=== PATIENT | male | born 1940 | race Caucasian/White ===

== ENCOUNTER 2016-11-20 16:18 | Outpatient (CLI) | payer MEDICARE ==
[2016-11-20 16:42] LABS: Prothrombin Time 22.8 SEC (12.0-14.7)
[2016-11-20 18:14] LABS: Anion Gap 18 mmol/L (10-20); BUN (Urea Nitrogen) 49 mg/dL (8.4-25.7); Calc. Creatinine Clearance 0 mL/min (70-130); Calcium 9.6 mg/dL (7.8-10.44); Carbon Dioxide 28 mmol/L (23-31); Chloride 99 mmol/L (98-107); Estimated GFR-MDRD 58
[2016-11-20 19:31] LABS: #Basophils 0.1 thou/uL (0.0-0.2); #Eosinphils 0.2 thou/uL (0.0-0.7); #Lymphocytes 1.2 thou/uL (1.20-3.40); #Monocytes 0.7 thou/uL (0.11-0.59); #Neutrophils 5.6 thou/uL (1.40-6.50); %Basophils 1.1 % (0.0-1.0); %Eosinophils 2.3 % (0.0-10.0); %Monocytes 9.4 % (0.0-10.0); Hematocrit 36.5 % (42.0-52.0); Mean Platelet Volume 7.7 fL (7.4-10.4); Red Blood Cell (RBC) Count 4.17 mill/uL (4.70-6.10); White Blood Cell (WBC) Count 7.7 thou/uL (4.8-10.8)
== END 2016-11-20 16:19 | disposition home or self-care (01) ==
LOC: BURLAB 16:18
PROVIDERS: ATTEND Family Medicine
DX: I48.91 Unspecified atrial fibrillation (principal); R60.9 Edema, unspecified; D50.9 Iron deficiency anemia, unspecified
CPT/HCPCS: 36415; 80048; 85025; 85610

== ENCOUNTER 2016-12-15 11:27 | Inpatient (IN) | payer MEDICARE ==
[2016-12-15] MEDS ORDERED: Temazepam 15 MG CAP PO PRN (22:50)
[2016-12-16 06:28] LABS: INR-International Normal Ratio 3.2; Prothrombin Time 32.4 SEC (12.0-14.7)
[2016-12-16 06:35] LABS: Anion Gap 15 mmol/L (10-20); BUN (Urea Nitrogen) 47 mg/dL (8.4-25.7); Calc. Creatinine Clearance 99 mL/min (70-130); Calcium 8.6 mg/dL (7.8-10.44); Carbon Dioxide 30 mmol/L (23-31); Chloride 93 mmol/L (98-107); Estimated GFR-MDRD 61; Glucose 88 mg/dL (83-110); Potassium 3.8 mmol/L (3.5-5.1); Sodium 134 mmol/L (136-145)
[2016-12-16] MEDS ORDERED: Oxymetazoline HCl 0.05% ( 15 ML ) NASAL PRN (08:46)
[2016-12-16] MEDS ORDERED: Polyethylene Glycol 3350 17 GM Packet PO PRN (08:46)
[2016-12-16] MEDS ORDERED: TRADJENTA 5MG PO SCH ×2 (09:00→09:30)
[2016-12-16] MEDS ORDERED: HumaLOG 300 UNITS/3 ML VIAL SC PRN ×2 (09:02)
[2016-12-16] MEDS ORDERED: Dextrose 5% in Water 1,000 ML IV PRN (09:02)
[2016-12-16] MEDS ORDERED: Dextrose 50% Abboject 50 ML SYRINGE SLOW IVP PRN (09:02)
[2016-12-16] MEDS ORDERED: Lorazepam 0.5 MG TAB PO SCH ×4 (09:07→11:00)
[2016-12-16] MEDS ORDERED: TEMAZEPAM 7.5MG PO SCH (09:15)
[2016-12-16] MEDS ORDERED: LIDOCAINE TOP PRN (09:30)
[2016-12-16] MEDS ORDERED: NICOTINE TOP SCH (09:30)
[2016-12-16] MEDS ORDERED: Levothyroxine Sodium 25 MCG TAB PO SCH (10:00)
[2016-12-16] MEDS ORDERED: Levothyroxine Sodium 100 MCG TAB PO SCH (10:00)
[2016-12-16] MEDS ORDERED: Lisinopril 5 MG TAB PO SCH (10:00)
[2016-12-16] MEDS ORDERED: busPIRone HCl 5 MG TAB PO SCH (10:00)
[2016-12-16] MEDS ORDERED: Potassium Chloride 10 MEQ TAB PO SCH (10:15)
[2016-12-16] MEDS: Furosemide 20 MG TAB PO SCH ×2 (10:28→14:25)
[2016-12-16] MEDS: Docusate 100 MG CAP PO SCH ×2 (10:28→21:21)
[2016-12-16] MEDS: Levothyroxine Sodium 25 MCG TAB PO SCH (10:29)
[2016-12-16] MEDS: Mupirocin 2% Ointment 22 GM Tube TOP SCH ×4 (10:30→21:34)
[2016-12-16] MEDS: Levothyroxine Sodium 100 MCG TAB PO SCH (10:33)
[2016-12-16] MEDS: Potassium Chloride 10 MEQ TAB PO SCH (10:34)
[2016-12-16] MEDS: busPIRone HCl 5 MG TAB PO SCH ×2 (10:35→21:21)
[2016-12-16] MEDS: Lisinopril 5 MG TAB PO SCH (10:36)
[2016-12-16] MEDS: (Vortioxetine Hydrobromide [Trintellix] 10 MG) PO SCH (10:39)
[2016-12-16] MEDS: Nicotine 7 MG PATCH TOP SCH (11:01)
[2016-12-16] MEDS: Warfarin Sodium 2 MG TAB PO SCH (17:36)
[2016-12-16] MEDS ORDERED: Temazepam 15 MG CAP PO PRN (21:11)
[2016-12-16] MEDS: Potassium Chloride 20 MEQ TAB PO SCH (21:22)
[2016-12-16] MEDS: Atorvastatin Calcium 40 MG TAB PO SCH (21:22)
[2016-12-17] MEDS: Levothyroxine Sodium 100 MCG TAB PO SCH (05:34)
[2016-12-17] MEDS: Levothyroxine Sodium 25 MCG TAB PO SCH (05:35)
[2016-12-17 06:11] LABS: INR-International Normal Ratio 2.2; Prothrombin Time 24.5 SEC (12.0-14.7)
[2016-12-17 06:58] LABS: Anion Gap 15 mmol/L (10-20); BUN (Urea Nitrogen) 47 mg/dL (8.4-25.7); Calc. Creatinine Clearance 93 mL/min (70-130); Calcium 8.6 mg/dL (7.8-10.44); Carbon Dioxide 28 mmol/L (23-31); Chloride 96 mmol/L (98-107); Estimated GFR-MDRD 59; Glucose 85 mg/dL (83-110); Potassium 3.9 mmol/L (3.5-5.1); Sodium 135 mmol/L (136-145)
[2016-12-17] MEDS: traMADol HCl 50 MG TAB PO PRN ×3 (09:19→21:14)
[2016-12-17] MEDS: Lisinopril 5 MG TAB PO SCH (09:20)
[2016-12-17] MEDS: Potassium Chloride 10 MEQ TAB PO SCH (09:21)
[2016-12-17] MEDS: Docusate 100 MG CAP PO SCH ×2 (09:21→21:08)
[2016-12-17] MEDS: busPIRone HCl 5 MG TAB PO SCH ×2 (09:21→21:06)
[2016-12-17] MEDS: Furosemide 20 MG TAB PO SCH ×2 (09:22→13:27)
[2016-12-17] MEDS: (Vortioxetine Hydrobromide [Trintellix] 10 MG) PO SCH (09:26)
[2016-12-17] MEDS: Mupirocin 2% Ointment 22 GM Tube TOP SCH ×4 (09:27→21:09)
[2016-12-17] MEDS: Nicotine 7 MG PATCH TOP SCH ×2 (11:09→15:43)
[2016-12-17] MEDS: Lorazepam 0.5 MG TAB PO PRN ×2 (12:47→23:54)
[2016-12-17] MEDS: Warfarin Sodium 2 MG TAB PO SCH (16:33)
[2016-12-17] MEDS: Potassium Chloride 20 MEQ TAB PO SCH (21:08)
[2016-12-17] MEDS: Atorvastatin Calcium 40 MG TAB PO SCH (21:08)
[2016-12-17] MEDS: Temazepam 15 MG CAP PO PRN (23:54)
[2016-12-18] MEDS: Levothyroxine Sodium 100 MCG TAB PO SCH (05:44)
[2016-12-18] MEDS: Levothyroxine Sodium 25 MCG TAB PO SCH (05:45)
[2016-12-18] MEDS: traMADol HCl 50 MG TAB PO PRN ×3 (05:48→20:17)
[2016-12-18 06:27] LABS: Prothrombin Time 22.9 SEC (12.0-14.7)
[2016-12-18 06:53] LABS: Anion Gap 15 mmol/L (10-20); BUN (Urea Nitrogen) 49 mg/dL (8.4-25.7); Calc. Creatinine Clearance 96 mL/min (70-130); Calcium 8.7 mg/dL (7.8-10.44); Carbon Dioxide 28 mmol/L (23-31); Chloride 96 mmol/L (98-107); Estimated GFR-MDRD 59; Glucose 83 mg/dL (83-110); Potassium 4.1 mmol/L (3.5-5.1); Sodium 135 mmol/L (136-145)
[2016-12-18] MEDS ORDERED: Polyethylene Glycol 3350 17 GM Packet PO SCH (08:00)
[2016-12-18] MEDS: busPIRone HCl 5 MG TAB PO SCH ×2 (10:32→20:10)
[2016-12-18] MEDS: Lorazepam 0.5 MG TAB PO PRN ×2 (10:32→20:11)
[2016-12-18] MEDS: Polyethylene Glycol 3350 17 GM Packet PO SCH (10:32)
[2016-12-18] MEDS: Docusate 100 MG CAP PO SCH ×2 (10:32→20:11)
[2016-12-18] MEDS: Lisinopril 5 MG TAB PO SCH (10:33)
[2016-12-18] MEDS: Furosemide 20 MG TAB PO SCH ×2 (10:33→13:53)
[2016-12-18] MEDS: Nicotine 7 MG PATCH TOP SCH (10:34)
[2016-12-18] MEDS: (Vortioxetine Hydrobromide [Trintellix] 10 MG) PO SCH (10:34)
[2016-12-18] MEDS: Potassium Chloride 10 MEQ TAB PO SCH (10:35)
[2016-12-18] MEDS: Mupirocin 2% Ointment 22 GM Tube TOP SCH ×3 (11:03→21:14)
[2016-12-18] MEDS: Warfarin Sodium 2 MG TAB PO SCH (16:52)
[2016-12-18] MEDS: Atorvastatin Calcium 40 MG TAB PO SCH (20:11)
[2016-12-18] MEDS: Potassium Chloride 20 MEQ TAB PO SCH (20:11)
[2016-12-18] MEDS: Temazepam 15 MG CAP PO PRN (23:09)
[2016-12-19] MEDS: Levothyroxine Sodium 100 MCG TAB PO SCH (05:52)
[2016-12-19] MEDS: Levothyroxine Sodium 25 MCG TAB PO SCH (05:53)
[2016-12-19] MEDS: traMADol HCl 50 MG TAB PO PRN ×3 (06:12→23:26)
[2016-12-19 06:39] LABS: INR-International Normal Ratio 1.9; Prothrombin Time 21.8 SEC (12.0-14.7)
[2016-12-19 06:44] LABS: Anion Gap 15 mmol/L (10-20); BUN (Urea Nitrogen) 49 mg/dL (8.4-25.7); Calc. Creatinine Clearance 90 mL/min (70-130); Calcium 8.9 mg/dL (7.8-10.44); Carbon Dioxide 29 mmol/L (23-31); Chloride 94 mmol/L (98-107); Estimated GFR-MDRD 54; Glucose 94 mg/dL (83-110); Potassium 4.6 mmol/L (3.5-5.1); Sodium 133 mmol/L (136-145)
[2016-12-19] MEDS: busPIRone HCl 5 MG TAB PO SCH ×2 (09:12→20:36)
[2016-12-19] MEDS: Potassium Chloride 10 MEQ TAB PO SCH (09:13)
[2016-12-19] MEDS: Furosemide 20 MG TAB PO SCH ×2 (09:13→13:46)
[2016-12-19] MEDS: Lisinopril 5 MG TAB PO SCH (09:14)
[2016-12-19] MEDS: Docusate 100 MG CAP PO SCH ×2 (09:15→20:36)
[2016-12-19] MEDS: Polyethylene Glycol 3350 17 GM Packet PO SCH (09:16)
[2016-12-19] MEDS: (Vortioxetine Hydrobromide [Trintellix] 10 MG) PO SCH (09:25)
[2016-12-19] MEDS: Mupirocin 2% Ointment 22 GM Tube TOP SCH ×3 (09:26→20:38)
[2016-12-19] MEDS: Nicotine 7 MG PATCH TOP SCH (10:52)
[2016-12-19] MEDS ORDERED: Ondansetron ODT 4 MG TAB SL PRN (11:25)
[2016-12-19] MEDS: Warfarin Sodium 2 MG TAB PO SCH (17:22)
[2016-12-19] MEDS: Potassium Chloride 20 MEQ TAB PO SCH (20:35)
[2016-12-19] MEDS: Atorvastatin Calcium 40 MG TAB PO SCH (20:36)
[2016-12-19] MEDS: Lorazepam 0.5 MG TAB PO PRN (20:36)
[2016-12-19] MEDS: Temazepam 15 MG CAP PO PRN (23:22)
[2016-12-20 05:35] LABS: Anion Gap 15 mmol/L (10-20); BUN (Urea Nitrogen) 48 mg/dL (8.4-25.7); Calc. Creatinine Clearance 85 mL/min (70-130); Calcium 8.9 mg/dL (7.8-10.44); Carbon Dioxide 27 mmol/L (23-31); Chloride 96 mmol/L (98-107); Estimated GFR-MDRD 54; Glucose 87 mg/dL (83-110); Potassium 4.9 mmol/L (3.5-5.1); Sodium 133 mmol/L (136-145)
[2016-12-20 05:45] LABS: INR-International Normal Ratio 2.1; Prothrombin Time 23.9 SEC (12.0-14.7)
[2016-12-20] MEDS: Levothyroxine Sodium 25 MCG TAB PO SCH (05:54)
[2016-12-20] MEDS: Levothyroxine Sodium 100 MCG TAB PO SCH (05:54)
[2016-12-20] MEDS: Docusate 100 MG CAP PO SCH (08:47)
[2016-12-20] MEDS: Furosemide 20 MG TAB PO SCH ×2 (08:47→14:01)
[2016-12-20] MEDS: busPIRone HCl 5 MG TAB PO SCH ×2 (08:48→20:43)
[2016-12-20] MEDS: Potassium Chloride 10 MEQ TAB PO SCH (08:48)
[2016-12-20] MEDS: Lisinopril 5 MG TAB PO SCH (08:49)
[2016-12-20] MEDS: Polyethylene Glycol 3350 17 GM Packet PO SCH (08:50)
[2016-12-20] MEDS: (Vortioxetine Hydrobromide [Trintellix] 10 MG) PO SCH (08:54)
[2016-12-20] MEDS: Lorazepam 0.5 MG TAB PO PRN ×2 (09:06→20:48)
[2016-12-20] MEDS: Mupirocin 2% Ointment 22 GM Tube TOP SCH ×3 (09:10→20:45)
[2016-12-20] MEDS: Nicotine 7 MG PATCH TOP SCH (10:56)
[2016-12-20] MEDS ORDERED: [UNRECOGNIZED DRUG - OTHER] PO PRN ×2 (16:38→16:39)
[2016-12-20] MEDS ORDERED: DOCUSATE PO PRN ×2 (16:38→16:39)
[2016-12-20] MEDS: Warfarin Sodium 2 MG TAB PO SCH (16:58)
[2016-12-20] MEDS: Potassium Chloride 20 MEQ TAB PO SCH (20:44)
[2016-12-20] MEDS: Atorvastatin Calcium 40 MG TAB PO SCH (20:44)
[2016-12-20] MEDS: traMADol HCl 50 MG TAB PO PRN (21:51)
[2016-12-21] MEDS: Temazepam 15 MG CAP PO PRN (00:01)
[2016-12-21] MEDS: Levothyroxine Sodium 100 MCG TAB PO SCH (05:30)
[2016-12-21] MEDS: Levothyroxine Sodium 25 MCG TAB PO SCH (05:31)
[2016-12-21 05:32] LABS: INR-International Normal Ratio 1.9; Prothrombin Time 21.9 SEC (12.0-14.7)
[2016-12-21 05:39] LABS: Anion Gap 13 mmol/L (10-20); BUN (Urea Nitrogen) 49 mg/dL (8.4-25.7); Calc. Creatinine Clearance 83 mL/min (70-130); Calcium 8.8 mg/dL (7.8-10.44); Carbon Dioxide 28 mmol/L (23-31); Chloride 98 mmol/L (98-107); Estimated GFR-MDRD 51; Glucose 80 mg/dL (83-110); Potassium 4.9 mmol/L (3.5-5.1); Sodium 134 mmol/L (136-145)
[2016-12-21] MEDS: traMADol HCl 50 MG TAB PO PRN ×3 (05:53→21:07)
[2016-12-21] MEDS: Potassium Chloride 10 MEQ TAB PO SCH (08:55)
[2016-12-21] MEDS: busPIRone HCl 5 MG TAB PO SCH ×2 (08:59→21:06)
[2016-12-21] MEDS: Furosemide 20 MG TAB PO SCH ×2 (09:00→13:56)
[2016-12-21] MEDS: Polyethylene Glycol 3350 17 GM Packet PO SCH (09:01)
[2016-12-21] MEDS: (Vortioxetine Hydrobromide [Trintellix] 10 MG) PO SCH (09:01)
[2016-12-21] MEDS: Lisinopril 5 MG TAB PO SCH (09:02)
[2016-12-21] MEDS: Lorazepam 0.5 MG TAB PO PRN ×2 (09:04→21:08)
[2016-12-21] MEDS: Mupirocin 2% Ointment 22 GM Tube TOP SCH ×3 (09:10→21:07)
[2016-12-21] MEDS: Nicotine 7 MG PATCH TOP SCH (10:48)
[2016-12-21] MEDS: Warfarin Sodium 2 MG TAB PO SCH (17:35)
[2016-12-21] MEDS: Potassium Chloride 20 MEQ TAB PO SCH (21:05)
[2016-12-21] MEDS: Atorvastatin Calcium 40 MG TAB PO SCH (21:06)
[2016-12-22 05:30] LABS: Anion Gap 14 mmol/L (10-20); BUN (Urea Nitrogen) 47 mg/dL (8.4-25.7); Calc. Creatinine Clearance 89 mL/min (70-130); Calcium 8.8 mg/dL (7.8-10.44); Carbon Dioxide 26 mmol/L (23-31); Chloride 98 mmol/L (98-107); Estimated GFR-MDRD 56; Glucose 80 mg/dL (83-110); Potassium 5.1 mmol/L (3.5-5.1); Sodium 133 mmol/L (136-145)
[2016-12-22 05:41] LABS: INR-International Normal Ratio 1.9; Prothrombin Time 22.1 SEC (12.0-14.7)
[2016-12-22] MEDS: Levothyroxine Sodium 100 MCG TAB PO SCH (06:07)
[2016-12-22] MEDS: Levothyroxine Sodium 25 MCG TAB PO SCH (06:07)
[2016-12-22] MEDS: Polyethylene Glycol 3350 17 GM Packet PO SCH (08:42)
[2016-12-22] MEDS: traMADol HCl 50 MG TAB PO PRN ×2 (08:43→21:03)
[2016-12-22] MEDS: Potassium Chloride 10 MEQ TAB PO SCH (08:43)
[2016-12-22] MEDS: Lisinopril 5 MG TAB PO SCH (08:44)
[2016-12-22] MEDS: Lorazepam 0.5 MG TAB PO PRN ×2 (08:44→21:03)
[2016-12-22] MEDS: Furosemide 20 MG TAB PO SCH ×2 (08:44→13:42)
[2016-12-22] MEDS: busPIRone HCl 5 MG TAB PO SCH ×2 (08:45→21:02)
[2016-12-22] MEDS: (Vortioxetine Hydrobromide [Trintellix] 10 MG) PO SCH (08:45)
[2016-12-22] MEDS: Senokot S 8.6-50 MG TAB PO PRN ×2 (08:47→21:10)
[2016-12-22] MEDS: Mupirocin 2% Ointment 22 GM Tube TOP SCH ×2 (08:48→15:14)
[2016-12-22] MEDS: Nicotine 7 MG PATCH TOP SCH (11:19)
[2016-12-22] MEDS: Warfarin Sodium 2 MG TAB PO SCH (17:16)
[2016-12-22] MEDS: Atorvastatin Calcium 40 MG TAB PO SCH (21:01)
[2016-12-22] MEDS: Potassium Chloride 20 MEQ TAB PO SCH (21:01)
[2016-12-23] MEDS: Mupirocin 2% Ointment 22 GM Tube TOP SCH ×4 (01:02→20:39)
[2016-12-23 05:36] LABS: Anion Gap 13 mmol/L (10-20); BUN (Urea Nitrogen) 45 mg/dL (8.4-25.7); Calc. Creatinine Clearance 95 mL/min (70-130); Calcium 8.7 mg/dL (7.8-10.44); Carbon Dioxide 27 mmol/L (23-31); Chloride 100 mmol/L (98-107); Estimated GFR-MDRD 57; Glucose 88 mg/dL (83-110); Potassium 4.8 mmol/L (3.5-5.1); Sodium 135 mmol/L (136-145)
[2016-12-23] MEDS: Levothyroxine Sodium 100 MCG TAB PO SCH (05:40)
[2016-12-23] MEDS: Levothyroxine Sodium 25 MCG TAB PO SCH (05:40)
[2016-12-23 05:43] LABS: INR-International Normal Ratio 1.6; Prothrombin Time 19.5 SEC (12.0-14.7)
[2016-12-23] MEDS: (Vortioxetine Hydrobromide [Trintellix] 10 MG) PO SCH (09:48)
[2016-12-23] MEDS: Potassium Chloride 10 MEQ TAB PO SCH (09:49)
[2016-12-23] MEDS: Furosemide 20 MG TAB PO SCH ×2 (09:49→13:22)
[2016-12-23] MEDS: Polyethylene Glycol 3350 17 GM Packet PO SCH (09:49)
[2016-12-23] MEDS: Lisinopril 5 MG TAB PO SCH (09:50)
[2016-12-23] MEDS: busPIRone HCl 5 MG TAB PO SCH ×2 (09:51→20:33)
[2016-12-23] MEDS: Lorazepam 0.5 MG TAB PO PRN ×2 (09:52→20:36)
[2016-12-23] MEDS: Metolazone 5 MG TAB PO PRN (09:52)
[2016-12-23] MEDS: traMADol HCl 50 MG TAB PO PRN ×2 (09:52→20:37)
[2016-12-23] MEDS: Nicotine 7 MG PATCH TOP SCH (11:28)
[2016-12-23] MEDS: Warfarin Sodium 2 MG TAB PO SCH (17:10)
[2016-12-23] MEDS: Potassium Chloride 20 MEQ TAB PO SCH (20:35)
[2016-12-23] MEDS: Atorvastatin Calcium 40 MG TAB PO SCH (20:36)
[2016-12-23] MEDS: Temazepam 15 MG CAP PO PRN (23:54)
[2016-12-24 05:27] LABS: Anion Gap 12 mmol/L (10-20); BUN (Urea Nitrogen) 40 mg/dL (8.4-25.7); Calc. Creatinine Clearance 86 mL/min (70-130); Calcium 8.8 mg/dL (7.8-10.44); Carbon Dioxide 29 mmol/L (23-31); Chloride 99 mmol/L (98-107); Estimated GFR-MDRD 51; Glucose 80 mg/dL (83-110); Potassium 4.4 mmol/L (3.5-5.1); Sodium 136 mmol/L (136-145)
[2016-12-24] MEDS: Levothyroxine Sodium 25 MCG TAB PO SCH (05:40)
[2016-12-24] MEDS: Levothyroxine Sodium 100 MCG TAB PO SCH (05:40)
[2016-12-24 05:41] LABS: INR-International Normal Ratio 1.6; Prothrombin Time 19.3 SEC (12.0-14.7)
[2016-12-24] MEDS: Polyethylene Glycol 3350 17 GM Packet PO SCH (09:07)
[2016-12-24] MEDS: busPIRone HCl 5 MG TAB PO SCH ×2 (09:08→22:15)
[2016-12-24] MEDS: Potassium Chloride 10 MEQ TAB PO SCH (09:08)
[2016-12-24] MEDS: traMADol HCl 50 MG TAB PO PRN ×3 (09:09→22:18)
[2016-12-24] MEDS: Lisinopril 5 MG TAB PO SCH (09:09)
[2016-12-24] MEDS: Lorazepam 0.5 MG TAB PO PRN ×2 (09:14→22:17)
[2016-12-24] MEDS: Metolazone 5 MG TAB PO PRN (09:14)
[2016-12-24] MEDS: (Vortioxetine Hydrobromide [Trintellix] 10 MG) PO SCH (09:16)
[2016-12-24] MEDS: Mupirocin 2% Ointment 22 GM Tube TOP SCH ×3 (09:16→22:20)
[2016-12-24] MEDS ORDERED: Furosemide 40 MG TAB ONE (09:25)
[2016-12-24] MEDS: Furosemide 20 MG TAB PO SCH ×2 (09:26→14:24)
[2016-12-24] MEDS: Nicotine 7 MG PATCH TOP SCH (10:53)
[2016-12-24] MEDS: Warfarin Sodium 2 MG TAB PO SCH (16:33)
[2016-12-24] MEDS: Potassium Chloride 20 MEQ TAB PO SCH (22:10)
[2016-12-24] MEDS: Atorvastatin Calcium 40 MG TAB PO SCH (22:14)
[2016-12-24] MEDS: Temazepam 15 MG CAP PO PRN (23:32)
[2016-12-25 05:36] LABS: Anion Gap 13 mmol/L (10-20); BUN (Urea Nitrogen) 37 mg/dL (8.4-25.7); Calc. Creatinine Clearance 95 mL/min (70-130); Carbon Dioxide 27 mmol/L (23-31); Chloride 98 mmol/L (98-107); Estimated GFR-MDRD 58; Glucose 76 mg/dL (83-110); Potassium 4.3 mmol/L (3.5-5.1); Sodium 134 mmol/L (136-145)
[2016-12-25 05:41] LABS: INR-International Normal Ratio 1.6
[2016-12-25] MEDS: Levothyroxine Sodium 100 MCG TAB PO SCH (05:56)
[2016-12-25] MEDS: Levothyroxine Sodium 25 MCG TAB PO SCH (05:56)
[2016-12-25] MEDS: Polyethylene Glycol 3350 17 GM Packet PO SCH (10:34)
[2016-12-25] MEDS: Potassium Chloride 10 MEQ TAB PO SCH (10:36)
[2016-12-25] MEDS: busPIRone HCl 5 MG TAB PO SCH ×2 (10:36→21:03)
[2016-12-25] MEDS: Furosemide 20 MG TAB PO SCH ×2 (10:37→14:08)
[2016-12-25] MEDS: traMADol HCl 50 MG TAB PO PRN (10:37)
[2016-12-25] MEDS: Lisinopril 5 MG TAB PO SCH (10:38)
[2016-12-25] MEDS: Lorazepam 0.5 MG TAB PO PRN (10:38)
[2016-12-25] MEDS: Mupirocin 2% Ointment 22 GM Tube TOP SCH ×3 (10:39→23:30)
[2016-12-25] MEDS: (Vortioxetine Hydrobromide [Trintellix] 10 MG) PO SCH (10:39)
[2016-12-25] MEDS: Senokot S 8.6-50 MG TAB PO PRN (10:50)
[2016-12-25] MEDS: Nicotine 7 MG PATCH TOP SCH (10:51)
[2016-12-25] MEDS: Warfarin Sodium 2 MG TAB PO SCH (17:53)
[2016-12-25] MEDS: Atorvastatin Calcium 40 MG TAB PO SCH (21:03)
[2016-12-25] MEDS: Potassium Chloride 20 MEQ TAB PO SCH (21:03)
[2016-12-25] MEDS ORDERED: Warfarin Sodium 2 MG TAB PO SCH (21:30)
[2016-12-25] MEDS: Temazepam 15 MG CAP PO PRN (23:39)
[2016-12-26 04:41] LABS: INR-International Normal Ratio 1.6; PTT 36.4 SEC (22.9-36.1); Prothrombin Time 18.8 SEC (12.0-14.7)
[2016-12-26 05:22] LABS: Anion Gap 13 mmol/L (10-20); BUN (Urea Nitrogen) 38 mg/dL (8.4-25.7); Calc. Creatinine Clearance 84 mL/min (70-130); Calcium 8.8 mg/dL (7.8-10.44); Carbon Dioxide 26 mmol/L (23-31); Chloride 98 mmol/L (98-107); Estimated GFR-MDRD 51; Glucose 82 mg/dL (83-110); Potassium 4.4 mmol/L (3.5-5.1); Sodium 133 mmol/L (136-145)
[2016-12-26] MEDS: Levothyroxine Sodium 25 MCG TAB PO SCH (05:30)
[2016-12-26] MEDS: Levothyroxine Sodium 100 MCG TAB PO SCH (05:30)
[2016-12-26] MEDS: Mupirocin 2% Ointment 22 GM Tube TOP SCH ×3 (09:12→21:16)
[2016-12-26] MEDS: Polyethylene Glycol 3350 17 GM Packet PO SCH (09:14)
[2016-12-26] MEDS: Potassium Chloride 10 MEQ TAB PO SCH (09:15)
[2016-12-26] MEDS: Furosemide 20 MG TAB PO SCH ×2 (09:17→15:06)
[2016-12-26] MEDS: Lisinopril 5 MG TAB PO SCH (09:18)
[2016-12-26] MEDS: Metolazone 5 MG TAB PO SCH (09:19)
[2016-12-26] MEDS: busPIRone HCl 5 MG TAB PO SCH ×2 (09:20→21:13)
[2016-12-26] MEDS: (Vortioxetine Hydrobromide [Trintellix] 10 MG) PO SCH (09:27)
[2016-12-26] MEDS: Nicotine 7 MG PATCH TOP SCH (11:59)
[2016-12-26] MEDS: Lorazepam 0.5 MG TAB PO PRN (15:10)
[2016-12-26] MEDS ORDERED: Warfarin Sodium 2 MG TAB PO SCH (17:00)
[2016-12-26] MEDS ORDERED: Warfarin Sodium 1 MG TAB PO SCH (17:00)
[2016-12-26] MEDS: Potassium Chloride 20 MEQ TAB PO SCH (21:11)
[2016-12-26] MEDS: Atorvastatin Calcium 40 MG TAB PO SCH (21:13)
[2016-12-26] MEDS: Temazepam 15 MG CAP PO PRN (23:31)
[2016-12-27] MEDS: Levothyroxine Sodium 100 MCG TAB PO SCH (05:47)
[2016-12-27] MEDS: Levothyroxine Sodium 25 MCG TAB PO SCH (05:47)
[2016-12-27] MEDS: traMADol HCl 50 MG TAB PO PRN (05:50)
[2016-12-27 06:51] LABS: INR-International Normal Ratio 1.5; Prothrombin Time 18.1 SEC (12.0-14.7)
[2016-12-27 06:52] LABS: PTT 37.2 SEC (22.9-36.1)
[2016-12-27 06:58] LABS: Anion Gap 14 mmol/L (10-20); BUN (Urea Nitrogen) 38 mg/dL (8.4-25.7); Calc. Creatinine Clearance 86 mL/min (70-130); Calcium 9.4 mg/dL (7.8-10.44); Carbon Dioxide 30 mmol/L (23-31); Chloride 97 mmol/L (98-107); Estimated GFR-MDRD 52; Glucose 85 mg/dL (83-110); Potassium 4.2 mmol/L (3.5-5.1); Sodium 137 mmol/L (136-145)
[2016-12-27] MEDS: Polyethylene Glycol 3350 17 GM Packet PO SCH (09:09)
[2016-12-27] MEDS: Potassium Chloride 10 MEQ TAB PO SCH (09:10)
[2016-12-27] MEDS: busPIRone HCl 5 MG TAB PO SCH ×2 (09:11→21:56)
[2016-12-27] MEDS: Furosemide 20 MG TAB PO SCH ×2 (09:12→15:04)
[2016-12-27] MEDS: Metolazone 5 MG TAB PO SCH (09:13)
[2016-12-27] MEDS: Lisinopril 5 MG TAB PO SCH (09:15)
[2016-12-27] MEDS: Mupirocin 2% Ointment 22 GM Tube TOP SCH ×3 (09:16→21:57)
[2016-12-27] MEDS: (Vortioxetine Hydrobromide [Trintellix] 10 MG) PO SCH (09:19)
[2016-12-27] MEDS: Nicotine 7 MG PATCH TOP SCH (15:05)
[2016-12-27] MEDS ORDERED: Warfarin Sodium 5 MG TAB PO SCH (17:00)
[2016-12-27] MEDS: Warfarin Sodium 7.5 MG TAB PO SCH (18:05)
[2016-12-27] MEDS: Potassium Chloride 20 MEQ TAB PO SCH (21:56)
[2016-12-27] MEDS: Atorvastatin Calcium 40 MG TAB PO SCH (21:56)
[2016-12-27] MEDS: Lorazepam 0.5 MG TAB PO PRN (21:56)
[2016-12-28] MEDS: Temazepam 15 MG CAP PO PRN ×2 (00:04→23:54)
[2016-12-28] MEDS: Levothyroxine Sodium 25 MCG TAB PO SCH (06:01)
[2016-12-28] MEDS: Levothyroxine Sodium 100 MCG TAB PO SCH (06:01)
[2016-12-28] MEDS: Senokot S 8.6-50 MG TAB PO PRN (06:02)
[2016-12-28 07:52] LABS: INR-International Normal Ratio 1.8; Prothrombin Time 20.6 SEC (12.0-14.7)
[2016-12-28 08:09] LABS: Anion Gap 14 mmol/L (10-20); BUN (Urea Nitrogen) 37 mg/dL (8.4-25.7); Calc. Creatinine Clearance 90 mL/min (70-130); Calcium 9.3 mg/dL (7.8-10.44); Carbon Dioxide 29 mmol/L (23-31); Chloride 98 mmol/L (98-107); Estimated GFR-MDRD 55; Glucose 112 mg/dL (83-110); Sodium 137 mmol/L (136-145)
[2016-12-28] MEDS: Polyethylene Glycol 3350 17 GM Packet PO SCH (10:06)
[2016-12-28] MEDS: Potassium Chloride 10 MEQ TAB PO SCH (10:07)
[2016-12-28] MEDS: busPIRone HCl 5 MG TAB PO SCH ×2 (10:07→20:37)
[2016-12-28] MEDS: Lisinopril 5 MG TAB PO SCH (10:08)
[2016-12-28] MEDS: Furosemide 20 MG TAB PO SCH ×2 (10:09→15:36)
[2016-12-28] MEDS: Metolazone 5 MG TAB PO SCH (10:11)
[2016-12-28] MEDS: (Vortioxetine Hydrobromide [Trintellix] 10 MG) PO SCH (10:12)
[2016-12-28] MEDS: Mupirocin 2% Ointment 22 GM Tube TOP SCH ×3 (10:12→20:38)
[2016-12-28] MEDS: Lorazepam 0.5 MG TAB PO PRN ×2 (10:15→20:36)
[2016-12-28] MEDS: traMADol HCl 50 MG TAB PO PRN (10:16)
[2016-12-28] MEDS: Nicotine 7 MG PATCH TOP SCH (11:09)
[2016-12-28] MEDS: Warfarin Sodium 7.5 MG TAB PO SCH (16:40)
[2016-12-28] MEDS: Atorvastatin Calcium 40 MG TAB PO SCH (20:37)
[2016-12-28] MEDS: Potassium Chloride 20 MEQ TAB PO SCH (20:37)
--- NOTE | 2016-12-28 22:39 | HP ---
SWING BED ADMIT NOTE CHIEF COMPLAINT: Scrotal swelling and lower extremity edema. HISTORY OF PRESENT ILLNESS: The patient is a 76-year-old white male who was recently admitted to [facility]. The patient has a longstanding history of lymphedema for which he has h ad outpatient occupational therapy in the past as well as morbid obesity, sleep apnea, atrial fibril lation, venous insufficiency as well as history of ulcers in his lower extremities secondary to lymp hedema. The patient began noticing increasing edema of the lower extremities accompanied by signifi cant edema of the lower abdominal area and scrotum over 2 to 3 weeks. He was seen in the emergency room and admitted at [facility] secondary to significant increased lower extremity edema and swelling and edema of the scrotum. While evaluated at [facility], he underwent ultras ound of the scrotum which showed bilateral hydroceles. During his hospitalization, he was placed on increased doses of IV Lasix as well as elevation of his lower extremities, which significantly help ed with dependent edema. Initially, his scrotal edema was at a basketball size and is now grapefrui t size. He is able to transfer and ambulate, but has diffuse weakness and debilitation and thus was transferred to [facility] for continue occupational and physical therapy as well as treatment for his lymphadema and possible diuretics as needed. Of note, during his hospital ization, he was found to be hyperglycemic and was placed on diabetic medications for the first time. Of note, during his hospitalization at [facility], he was evaluated by a cardiol ogist after he was found to have bradycardia. In the emergency room, that was asymptomatic. The ca rdiologist recommended pharmacotherapy with amiodarone and close monitoring. Consider followup visi t for any signs of need for pacemaker in the future, but none was recommended at the time of his rec ent admission. PAST MEDICAL HISTORY: 1. Atrial fibrillation. 2. Morbid obesity. 3. Sleep apnea. 4. Venous insufficiency with chronic lymphedema. 5. Chronic anxiety. 6. Hypothyroidism. REVIEW OF SYSTEMS: Presently, the patient reports diffuse weakness and debilitation. He reports hi s lower extremity edema significantly improved from his recent hospitalization. He was unable to si t due to the large scrotal edema, which has improved. Denies any fevers, chills, night sweats, naus ea or vomiting. The patient denies any recent visual changes, no recent sore throat or cough. No a bdominal pain, nausea or vomiting. No dysuria, hematuria or change in urinary frequency. The patie nt reports his lower extremity edema has improved. The patient denies any significant back pain. N o recent rashes were noted. No signs of bleeding disorders reported and patient denies depression. PHYSICAL EXAMINATION: VITAL SIGNS: Blood pressure was 152/92, respiratory rate was 16 and pulse was in the 80s. HEENT: Atraumatic and normocephalic. Extraocular movements are intact. Pupils are equal, round an d reactive to light and accommodation. Oropharynx; mucous membranes are moist. No exudate, dischar ge or lesions. NECK: Supple. No masses palpated, no bruits auscultated. CHEST: Clear to auscultation bilaterally without rales or wheezes. HEART: Irregularly irregular rhythm. ABDOMEN: Obese, soft, nontender and nondistended. No masses are palpated. EXTREMITIES: Showed 3+ chronic edema to the lower extremities with a purplish tone to the skin. GENITOURINARY: Evaluation of the scrotum showed a grapefruit size scrotum. It was nontender. No e rythema nor warmth was noted. ASSESSMENT AND PLAN: 1. Chronic lymphedema with scrotal hydrocele/edema. We will continue the patient on oral Lasix. W e will consider occupational therapy for treatment of his lymphedema and to try to prevent any recur rence of his lower extremity ulcers. 2. Debilitation weakness. Occupational therapy and physical therapy will be ordered to try to impr ove the patient's strength. 3. Atrial fibrillation with history of bradycardia. The patient will continue his pharmacotherapy as recommended by medical assistant secretary at [facility] and follow up with his medical assistant secretary in the near future. We will assess for any signs of symptomatic bradycardia or tachycardia. 4. Hyperglycemia. Hemoglobin A1c was 6.6 in his recent hospitalization. He was never diagnosed wi th diabetes previously. He was placed on medication in his recent hospitalization. We will continu e that medication and follow his blood sugars. 5. Hypertension, presently controlled. DISPOSITION: Plan is to be discharged to home once the patient has improved his overall weakness. The patient's care will be transferred over to Dr. Yong Cortez for continuation of care and possibl e long-term care management.
[2016-12-29] MEDS: Levothyroxine Sodium 100 MCG TAB PO SCH (06:25)
[2016-12-29] MEDS: Levothyroxine Sodium 25 MCG TAB PO SCH (06:27)
[2016-12-29 06:41] LABS: INR-International Normal Ratio 1.9; Prothrombin Time 22.1 SEC (12.0-14.7)
[2016-12-29 06:47] LABS: Anion Gap 13 mmol/L (10-20); BUN (Urea Nitrogen) 37 mg/dL (8.4-25.7); Calc. Creatinine Clearance 90 mL/min (70-130); Carbon Dioxide 27 mmol/L (23-31); Chloride 99 mmol/L (98-107); Estimated GFR-MDRD 56; Glucose 81 mg/dL (83-110); Potassium 3.9 mmol/L (3.5-5.1); Sodium 135 mmol/L (136-145)
[2016-12-29] MEDS: Potassium Chloride 10 MEQ TAB PO SCH (09:57)
[2016-12-29] MEDS: Furosemide 20 MG TAB PO SCH ×2 (09:58→14:41)
[2016-12-29] MEDS: busPIRone HCl 5 MG TAB PO SCH ×2 (09:58→21:21)
[2016-12-29] MEDS: Metolazone 5 MG TAB PO SCH (09:59)
[2016-12-29] MEDS: Mupirocin 2% Ointment 22 GM Tube TOP SCH ×3 (10:05→21:21)
[2016-12-29] MEDS: (Vortioxetine Hydrobromide [Trintellix] 10 MG) PO SCH (10:07)
[2016-12-29] MEDS: Nicotine 7 MG PATCH TOP SCH (10:13)
[2016-12-29] MEDS: Polyethylene Glycol 3350 17 GM Packet PO SCH (10:13)
[2016-12-29] MEDS: Lisinopril 5 MG TAB PO SCH (10:47)
[2016-12-29] MEDS: Lorazepam 0.5 MG TAB PO PRN (14:55)
[2016-12-29] MEDS: Warfarin Sodium 7.5 MG TAB PO SCH (17:30)
[2016-12-29] MEDS: Potassium Chloride 20 MEQ TAB PO SCH (21:20)
[2016-12-29] MEDS: Atorvastatin Calcium 40 MG TAB PO SCH (21:21)
[2016-12-29] MEDS: Temazepam 15 MG CAP PO PRN (23:19)
[2016-12-30] MEDS: Lorazepam 0.5 MG TAB PO PRN ×3 (04:25→21:11)
[2016-12-30] MEDS: Levothyroxine Sodium 25 MCG TAB PO SCH (05:06)
[2016-12-30] MEDS: Levothyroxine Sodium 100 MCG TAB PO SCH (05:06)
[2016-12-30 06:30] LABS: INR-International Normal Ratio 2.1; Prothrombin Time 23.7 SEC (12.0-14.7)
[2016-12-30 06:37] LABS: Anion Gap 14 mmol/L (10-20); BUN (Urea Nitrogen) 33 mg/dL (8.4-25.7); Calc. Creatinine Clearance 97 mL/min (70-130); Calcium 9.3 mg/dL (7.8-10.44); Carbon Dioxide 27 mmol/L (23-31); Chloride 99 mmol/L (98-107); Estimated GFR-MDRD 62; Glucose 103 mg/dL (83-110); Potassium 4.1 mmol/L (3.5-5.1); Sodium 136 mmol/L (136-145)
[2016-12-30] MEDS: Potassium Chloride 10 MEQ TAB PO SCH (08:30)
[2016-12-30] MEDS: Polyethylene Glycol 3350 17 GM Packet PO SCH (09:47)
[2016-12-30] MEDS: Metolazone 5 MG TAB PO SCH (09:48)
[2016-12-30] MEDS: Furosemide 20 MG TAB PO SCH ×2 (09:48→13:06)
[2016-12-30] MEDS: busPIRone HCl 5 MG TAB PO SCH ×2 (09:49→21:11)
[2016-12-30] MEDS: Mupirocin 2% Ointment 22 GM Tube TOP SCH ×3 (09:50→21:21)
[2016-12-30] MEDS: (Vortioxetine Hydrobromide [Trintellix] 10 MG) PO SCH (09:51)
[2016-12-30] MEDS: Nicotine 7 MG PATCH TOP SCH (11:25)
[2016-12-30] MEDS: traMADol HCl 50 MG TAB PO PRN ×2 (11:43→21:16)
[2016-12-30 13:40] VITALS: BMI 42.0
[2016-12-30] MEDS: Warfarin Sodium 7.5 MG TAB PO SCH (17:11)
[2016-12-30] MEDS: Atorvastatin Calcium 40 MG TAB PO SCH (21:12)
[2016-12-30] MEDS: Potassium Chloride 20 MEQ TAB PO SCH (21:12)
[2016-12-30] MEDS: Temazepam 15 MG CAP PO PRN (23:17)
[2016-12-31] MEDS: Levothyroxine Sodium 25 MCG TAB PO SCH (05:27)
[2016-12-31] MEDS: Levothyroxine Sodium 100 MCG TAB PO SCH (05:28)
[2016-12-31 06:37] LABS: Prothrombin Time 22.4 SEC (12.0-14.7)
[2016-12-31 06:44] LABS: Anion Gap 13 mmol/L (10-20); BUN (Urea Nitrogen) 34 mg/dL (8.4-25.7); Calc. Creatinine Clearance 86 mL/min (70-130); Calcium 9.2 mg/dL (7.8-10.44); Carbon Dioxide 29 mmol/L (23-31); Chloride 99 mmol/L (98-107); Estimated GFR-MDRD 54; Glucose 90 mg/dL (83-110); Potassium 4.1 mmol/L (3.5-5.1); Sodium 137 mmol/L (136-145)
[2016-12-31 07:00] VITALS: BP 107/57; TEMP 97.8
[2016-12-31] MEDS: Potassium Chloride 10 MEQ TAB PO SCH (08:54)
[2016-12-31] MEDS: Metolazone 5 MG TAB PO SCH (08:55)
[2016-12-31] MEDS: busPIRone HCl 5 MG TAB PO SCH (08:56)
[2016-12-31] MEDS: Furosemide 20 MG TAB PO SCH (08:56)
[2016-12-31] MEDS: Lorazepam 0.5 MG TAB PO PRN (08:57)
[2016-12-31] MEDS: (Vortioxetine Hydrobromide [Trintellix] 10 MG) PO SCH (08:57)
[2016-12-31] MEDS: Polyethylene Glycol 3350 17 GM Packet PO SCH (08:57)
[2016-12-31] MEDS: Mupirocin 2% Ointment 22 GM Tube TOP SCH (08:58)
[2016-12-31] MEDS: Nicotine 7 MG PATCH TOP SCH (10:57)
--- NOTE | 2017-01-01 03:03 | DIS ---
DATE OF ADMISSION: 12/15/2016 DATE OF DISCHARGE: 12/31/2016 ADMISSION DIAGNOSES: Lymphedema, scrotal edema, bilateral hydroceles, and physical deconditioning. DISCHARGE DIAGNOSES: Includes atrial fibrillation, diabetes mellitus type 2, hypothyroidism, hyperlipidemia, obesity, obstructive sleep apnea, chronic anxiety. PROCEDURES: None. HOSPITAL COURSE: This is a 76-year-old male with a chronic history of venous insufficiency and lymphedema who had gradual worsening of his underlying issues , prompting a hospital admission at [facility]. After stabilization with diuresis and leg elevation at that facility, he was transferred to [facility] to participate with further PT, OT, and care regarding the lymphedema. The patient was diuresed on his usual Lasix dose and was transitioned from a p.r.n. metolazone to a daily metolazone dose. He was able to successfully and gradually decrease the lymphedema in conjunction with working with OT. The patient did require supplemental oxygen during his stay; however, as his lymphedema improved his respiratory status necessitated less supplemental O2 and eventual cessation. Patient's physical deconditioning also improved to where he was able to ambulate without assistance of any specific devices. He has elected to continue seeing PT and OT as an outpatient instead of pursuing this through home health. In addition to this, he has elected to continue his primary medical care locally as opposed to where he was formerly treated by a PCP in [place]. During his hospital stay it was noted that the patient's INR trended down. Thus his dose of Coumadin was gradually titrated up to a dose of 7.5 mg p.o. daily. At this level, he was able to sustain a therapeutic INR ranging between 2 and 2.1 prior to discharge. Prior to the admission in our facility, patient's A1c was notably 6.6. He was thus started on Tradjenta 5 mg p.o. daily, which will be continued as an outpatient. During his stay, glucose readings were satisfactory. At this time, the patient had successfully reached the goals set forth by both PT and OT, and he is appropriate for discharge. DISPOSITION: Patient will return to home and may follow up in the clinic with myself in a week. He will also participate with PT, OT in an outpatient setting at [facility]. DISCHARGE MEDICATIONS: Coumadin 7.5 mg p.o. daily, Lasix 60 mg p.o. b.i.d., levothyroxine 325 mcg p.o. daily, potassium chloride 30 mEq p.o. daily on a.m. and 20 mEq at bedtime, lorazepam 1 mg p.o. t.i.d., atorvastatin 40 mg p.o. at bedtime, amiodarone 200 mg p.o. daily, docusate 100 mg p.o. b.i.d., BuSpar 15 mg p.o. b.i.d., MiraLAX 17 grams orally as needed, Trintellix 10 mg p.o. daily, pantoprazole 40 mg p.o. daily, Tradjenta 5 mg p.o. daily, nicotine patch transdermally daily, oxymetazoline 0.5% nasal spray twice daily p.r.n., tramadol 25 mg q.i.d. p.r.n., Skelaxin 800 mg p.o. t.i.d. p.r.n., and Restoril 7.5 mg p.o. at bedtime. MTDD
== END 2016-12-31 12:05 | disposition home or self-care (01) | DRG 607 ==
LOC: BURMED 19:11
PROVIDERS: ADMIT Family Medicine; ATTEND Family Medicine
DX: I89.0 Lymphedema, not elsewhere classified (principal); I48.91 Unspecified atrial fibrillation; E11.9 Type 2 diabetes mellitus without complications; E66.01 Morbid (severe) obesity due to excess calories; N50.89 Other specified disorders of the male genital organs; N43.3 Hydrocele, unspecified; E78.5 Hyperlipidemia, unspecified; E03.9 Hypothyroidism, unspecified; E66.9 Obesity, unspecified; G47.33 Obstructive sleep apnea (adult) (pediatric); F41.9 Anxiety disorder, unspecified; G47.30 Sleep apnea, unspecified
CPT/HCPCS: 36415; 36416; 80048; 85610; 85730; G8978-GP-CK; G8979-GP-CI; G8987-GO-CK; G8988-GO-CI; J3490; Q0162

== ENCOUNTER 2017-01-08 15:11 | Outpatient (CLI) | payer MEDICARE ==
[2017-01-08 15:34] LABS: INR-International Normal Ratio 2.2
[2017-01-08 15:44] LABS: ALT (SGPT) 11 U/L (0-55); AST (SGOT) 23 U/L (5-34); Albumin 4.1 g/dL (3.4-4.8); Alkaline Phosphatase 136 U/L (40-150); Anion Gap 14 mmol/L (10-20); BUN (Urea Nitrogen) 41 mg/dL (8.4-25.7); Bilirubin, Total 1.5 mg/dL (0.2-1.2); Calc. Creatinine Clearance 0 mL/min (70-130); Calcium 9.5 mg/dL (7.8-10.44); Carbon Dioxide 31 mmol/L (23-31); Chloride 98 mmol/L (98-107); Estimated GFR-MDRD 57; Globulin 3.9 g/dL (2.4-3.5); Glucose 73 mg/dL (83-110); Potassium 3.9 mmol/L (3.5-5.1); Sodium 139 mmol/L (136-145)
== END 2017-01-08 15:12 ==
LOC: HPCALD 15:11
PROVIDERS: ATTEND Family Medicine
DX: E87.6 Hypokalemia (principal); I48.2 Chronic atrial fibrillation
CPT/HCPCS: 36415; 80053; 85610

== ENCOUNTER 2017-04-05 15:26 | Outpatient (CLI) | payer MEDICARE ==
[2017-04-05 15:41] LABS: Prothrombin Time 22.9 SEC (12.0-14.7)
== END 2017-04-05 15:27 | disposition home or self-care (01) ==
LOC: HPCALD 15:26
PROVIDERS: ATTEND Family Medicine
DX: I48.2 Chronic atrial fibrillation (principal)
CPT/HCPCS: 36415; 85610

== ENCOUNTER 2017-04-11 09:24 | Outpatient (CLI) | payer MEDICARE ==
[2017-04-11 10:23] LABS: #Basophils 0.1 thou/uL (0.0-0.2); #Eosinphils 0.2 thou/uL (0.0-0.7); #Lymphocytes 1.1 thou/uL (1.20-3.40); #Monocytes 0.6 thou/uL (0.11-0.59); #Neutrophils 3.8 thou/uL (1.40-6.50); %Basophils 1.3 % (0.0-1.0); %Eosinophils 3.8 % (0.0-10.0); %Lymphocytes 18.5 % (21.0-51.0); %Neutrophils 66.4 % (42.0-75.0); Hemoglobin 12.7 g/dL (14.0-18.0); Mean Corpuscular Hemoglobin 27.6 pg (27.0-31.0); Mean Platelet Volume 7.6 fL (7.4-10.4); Platelet Count 139 thou/uL (130-400); RBC Distribution Width 17.7 % (11.5-14.5); Red Blood Cell (RBC) Count 4.61 mill/uL (4.70-6.10); White Blood Cell (WBC) Count 5.8 thou/uL (4.8-10.8)
[2017-04-11 10:42] LABS: ALT (SGPT) 29 U/L (8-55); AST (SGOT) 35 U/L (5-34); Albumin 4.1 g/dL (3.4-4.8); Alkaline Phosphatase 83 U/L (40-150); Anion Gap 15 mmol/L (10-20); BUN (Urea Nitrogen) 44 mg/dL (8.4-25.7); Calc. Creatinine Clearance 0 mL/min (70-130); Calcium 9.6 mg/dL (7.8-10.44); Carbon Dioxide 33 mmol/L (23-31); Cardiac Risk 2.8 (Less than 4.5); Chloride 94 mmol/L (98-107); Cholesterol 126 mg/dl (< 200 Desired); Estimated GFR-MDRD 53; Globulin 3.7 g/dL (2.4-3.5); Glucose 77 mg/dL (83-110); HDL Cholesterol 45 mg/dL (>60 Neg Risk); LDL Cholesterol, Calculated 72 mg/dL; Potassium 3.7 mmol/L (3.5-5.1); Protein, Total 7.8 g/dL (5.8-8.1); Sodium 138 mmol/L (136-145); Triglycerides 47 mg/dL (Less than 150)
[2017-04-11 10:55] LABS: Free T4 (Free Thyroxine) 1.42 ng/dL (0.70-1.48); Thyroid Stimulating Hormone 1.1136 uIU/mL (0.35-4.94)
[2017-04-11 11:01] LABS: Hemoglobin A1c 5.6 % (4.0-6.0)
== END 2017-04-11 09:25 | disposition home or self-care (01) ==
LOC: HPCALD 09:24
PROVIDERS: ATTEND Family Medicine
DX: E03.9 Hypothyroidism, unspecified (principal); E11.9 Type 2 diabetes mellitus without complications; I10 Essential (primary) hypertension; E78.5 Hyperlipidemia, unspecified
CPT/HCPCS: 36415; 80053; 80061; 83036; 84439; 84443; 85025

== ENCOUNTER 2017-06-20 14:50 | Outpatient (CLI) | payer MEDICARE ==
[2017-06-20 15:06] LABS: INR-International Normal Ratio 1.8; Prothrombin Time 21.3 SEC (12.0-14.7)
== END 2017-06-20 14:51 | disposition home or self-care (01) ==
LOC: HPCALD 14:50
PROVIDERS: ATTEND Family Medicine
DX: I48.2 Chronic atrial fibrillation (principal)
CPT/HCPCS: 36415; 85610

== ENCOUNTER 2017-06-27 15:52 | Outpatient (CLI) | payer MEDICARE | END 2017-06-27 15:53 | disposition home or self-care (01) | LOC: BURLAB 15:52 | PROVIDERS: ATTEND Family Medicine | DX: Z01.812 Encounter for preprocedural laboratory examination (principal); R19.09 Other intra-abdominal and pelvic swelling, mass and lump | CPT/HCPCS: 36415; 82565 ==

== ENCOUNTER 2017-06-28 08:41 | Outpatient (CLI) | payer MEDICARE ==
--- NOTE | 2017-06-28 20:10 | CT ---
CT ABDOMEN AND PELVIS WITH CONTRAST 06/28/[address] of the abdomen and pelvis was performed for evaluation of a right inguinal swelling. Axial slices were acquired, then coronal and sagittal reconstructions were done. Dependent atelectasis is seen in the lower lobes posteriorly. There are no effusions. The surface of the liver is slightly nodular, which sometimes can signify cirrhosis, but the overall liver size is not grossly abnormal and internally, I see no abnormalities. The spleen, pancreas, adrenal glands, and kidneys showed no acute findings. There is a small cyst in the lower pole of the right kidney an d the mid to lower portion of the left. The left adrenal is a little more bulbous than the right. If there is actually a mass here, it is less than 1 cm in size and probably not a current concern. The gallbladder contains no signs of stones. The aorta shows arteriosclerosis but no aneurysm. There is no distention of bowel to suggest obstruction. There is abundant fecal material in the colo n. The gastric mucosa seems a little thicker than usual, but it is not completely distended which co uld falsely make it appears that way. There is a cystic area in the right inguinal canal responsible for the palpable swelling. It appears to connect directly to the urinary bladder, thus, this appears to be either a herniated bladder div erticulum or a hernia of a portion of the bladder itself into the right inguinal canal. This is some times referred to as a "scrotal cystocele". The remainder of the pelvis showed no mass, inflammatory change or free fluid. Extensive degenerative changes are seen in the spine, particularly the lower lumbar spine. IMPRESSION: 1. Right inguinal swelling appears to be due to herniation of a portion of the urinary bladder into the right inguinal canal, sometimes referred to as a scrotal cystocele. 2. Mild diffuse thickening of the gastric mucosa which may be real or just a consequence of the stomach being underdistended. This can sometimes be a sign of gastritis. 3. Other incidental findings as listed above. Code T POS: HOME
== END 2017-06-28 08:42 | disposition home or self-care (01) ==
LOC: BURCT 08:41
PROVIDERS: ATTEND Family Medicine
DX: R19.09 Other intra-abdominal and pelvic swelling, mass and lump (principal); K31.89 Other diseases of stomach and duodenum
CPT/HCPCS: 74177

== ENCOUNTER 2017-08-18 20:59 | Emergency (ER) | payer MEDICARE ==
[2017-08-18 22:05] LABS: #Basophils 0.1 thou/uL (0.0-0.2); #Eosinphils 0.2 thou/uL (0.0-0.7); #Lymphocytes 0.7 thou/uL (1.20-3.40); #Monocytes 0.6 thou/uL (0.11-0.59); #Neutrophils 5.9 thou/uL (1.40-6.50); %Basophils 1.6 % (0.0-1.0); %Eosinophils 2.3 % (0.0-10.0); %Lymphocytes 8.8 % (21.0-51.0); %Monocytes 8.2 % (0.0-10.0); Hemoglobin 9.1 g/dL (14.0-18.0); Mean Corpuscular HGB CONC 32.3 g/dL (32.0-36.0); Mean Corpuscular Hemoglobin 30.7 pg (27.0-31.0); Mean Corpuscular Volume 95.2 fl (80.0-94.0); Mean Platelet Volume 5.7 fL (7.4-10.4); Platelet Count 301 thou/uL (130-400); RBC Distribution Width 15.9 % (11.5-14.5); Red Blood Cell (RBC) Count 2.95 mill/uL (4.70-6.10); White Blood Cell (WBC) Count 7.4 thou/uL (4.8-10.8)
[2017-08-18 22:09] LABS: INR-International Normal Ratio 1.6; PTT 42.6 SEC (22.9-36.1); Prothrombin Time 19.9 SEC (12.0-14.7)
[2017-08-18 22:18] LABS: ALT (SGPT) 11 U/L (8-55); AST (SGOT) 22 U/L (5-34); Albumin 3.3 g/dL (3.4-4.8); Alkaline Phosphatase 89 U/L (40-150); Anion Gap 15 mmol/L (10-20); BUN (Urea Nitrogen) 34 mg/dL (8.4-25.7); Calc. Creatinine Clearance 0 mL/min (70-130); Calcium 9.3 mg/dL (7.8-10.44); Carbon Dioxide 29 mmol/L (23-31); Chloride 96 mmol/L (98-107); Estimated GFR-MDRD 69; Globulin 4.1 g/dL (2.4-3.5); Glucose 98 mg/dL (83-110); Potassium 3.9 mmol/L (3.5-5.1); Protein, Total 7.4 g/dL (5.8-8.1); Sodium 136 mmol/L (136-145)
[2017-08-18 22:19] LABS: Bilirubin Negative (Negative); Blood, Urine Small (Negative); Clarity Slightly Cloudy (Clear); Glucose, Urine (Dipstick) Negative (Negative); Leukocyte Negative (Negative); Nitrite Negative (Negative); Protein, Urine (Dipstick) Trace mg/dL (Neg-Trace)
[2017-08-18 22:24] LABS: Bacteria/HPF Rare-Few HPF (None Seen); Renal Epithelial 0-3 HPF (0-3); Squamous Epithelial 0-3 HPF (0-3); WBC/HPF 0-3 HPF (0-3)
[2017-08-18 22:26] LABS: Crystals/HPF RARE AMORPH PHOS HPF (Negative)
--- NOTE | 2017-08-18 22:27 | RAD ---
CHEST TWO VIEWS: History: Fever. Comparison: Chest one view, 08-03-17 FINDINGS: Linear opacities in the lung bases are similar. Heart size upper limits of normal. Moderate spondoly tic changes throughout the spine. No pneumothorax. Heart size upper limits of normal. IMPRESSION: 1. No significant change in radiographic appearance of the chest. 2. Mild cardiomegaly. POS: [facility]
== END 2017-08-18 23:40 | disposition short-term general hospital (02) ==
LOC: BURERS 20:59
DX: L76.22 Postprocedural hemorrhage of skin and subcutaneous tissue following other procedure (principal); R09.02 Hypoxemia; R50.9 Fever, unspecified; E03.9 Hypothyroidism, unspecified; I48.91 Unspecified atrial fibrillation; E78.5 Hyperlipidemia, unspecified; Z87.891 Personal history of nicotine dependence; Z79.899 Other long term (current) drug therapy
CPT/HCPCS: 36415; 71020; 80053; 81003; 81015; 83605; 85025; 85610; 85730; 87040; 94760

== ENCOUNTER → 2017-11-01 | Emergency (ER) | payer MEDICARE ==
[~2017-11-01] MED LIST: Oxymetazoline HCl 0.05% ( 15 ML ) ONE
[2017-11-01 10:01] LABS: INR-International Normal Ratio 1.7; PTT 38.1 SEC (22.9-36.1); Prothrombin Time 20.3 SEC (12.0-14.7)
[2017-11-01 10:02] LABS: Hemoglobin 11.3 g/dL (14.0-18.0); Mean Corpuscular HGB CONC 33.4 g/dL (32.0-36.0); Mean Corpuscular Hemoglobin 29.5 pg (27.0-31.0); Mean Corpuscular Volume 88.3 fl (80.0-94.0); Mean Platelet Volume 6.3 fL (7.4-10.4); Platelet Count 143 thou/uL (130-400); RBC Distribution Width 14.9 % (11.5-14.5); Red Blood Cell (RBC) Count 3.84 mill/uL (4.70-6.10); White Blood Cell (WBC) Count 6.6 thou/uL (4.8-10.8)
[2017-11-01 10:30] LABS: #Basophils 0.1 thou/uL (0.0-0.2); #Eosinphils 0.1 thou/uL (0.0-0.7); #Lymphocytes 0.8 thou/uL (1.20-3.40); #Monocytes 0.5 thou/uL (0.11-0.59); #Neutrophils 5.2 thou/uL (1.40-6.50); %Eosinophils 1.5 % (0.0-10.0); %Lymphocytes 12.1 % (21.0-51.0); %Monocytes 7.2 % (0.0-10.0); %Neutrophils 78.2 % (42.0-75.0); Eosinophils 1 % (0-10); Lymphocytes 7 % (21-51); MDiff Complete? YES; Monocytes 6 % (0-10); Neutrophil 84 % (42-75); PLT Morphology Comment Appears Adequate; RBC Morphology Normal
== END ==
LOC: BURERS 09:24
DX: R04.0 Epistaxis (principal); R09.81 Nasal congestion; I48.91 Unspecified atrial fibrillation; E03.9 Hypothyroidism, unspecified; E78.5 Hyperlipidemia, unspecified; Z87.891 Personal history of nicotine dependence
CPT/HCPCS: 36415; 85025; 85610; 85730; 99283

== ENCOUNTER 2018-04-16 13:44 | Emergency (ER) | payer MEDICARE ==
[2018-04-16 14:21] LABS: #Basophils 0.1 thou/uL (0.0-0.2); #Lymphocytes 0.5 thou/uL (1.20-3.40); #Monocytes 0.6 thou/uL (0.11-0.59); %Basophils 0.6 % (0.0-1.0); %Eosinophils 0.1 % (0.0-10.0); %Lymphocytes 5.5 % (21.0-51.0); %Monocytes 7.8 % (0.0-10.0); Hemoglobin 10.2 g/dL (14.0-18.0); Mean Corpuscular HGB CONC 33.9 g/dL (32.0-36.0); Mean Corpuscular Hemoglobin 26.8 pg (27.0-31.0); Mean Platelet Volume 6.9 fL (7.4-10.4); Platelet Count 174 thou/uL (130-400); RBC Distribution Width 14.3 % (11.5-14.5); Red Blood Cell (RBC) Count 3.81 mill/uL (4.70-6.10); White Blood Cell (WBC) Count 8.2 thou/uL (4.8-10.8)
[2018-04-16] MEDS ORDERED: Acetaminophen 325 MG TAB ONE (14:31)
[2018-04-16 14:38] LABS: ALT (SGPT) 18 U/L (8-55); AST (SGOT) 25 U/L (5-34); Albumin 4.1 g/dL (3.4-4.8); Alkaline Phosphatase 78 U/L (40-150); Anion Gap 19 mmol/L (10-20); BUN (Urea Nitrogen) 57 mg/dL (8.4-25.7); Bilirubin, Total 0.9 mg/dL (0.2-1.2); Calc. Creatinine Clearance 0 mL/min (70-130); Calcium 9.6 mg/dL (7.8-10.44); Carbon Dioxide 30 mmol/L (23-31); Chloride 88 mmol/L (98-107); Estimated GFR-MDRD 47; Globulin 4.1 g/dL (2.4-3.5); Glucose 128 mg/dL (83-110); Potassium 3.3 mmol/L (3.5-5.1); Protein, Total 8.2 g/dL (5.8-8.1); Sodium 134 mmol/L (136-145)
[2018-04-16 14:41] LABS: CKMB 4.2 ng/mL (0-6.6); Troponin I 0.285 ng/mL (< 0.028)
--- NOTE | 2018-04-16 14:47 | RAD ---
PORTABLE CHEST 1 VIEW: Date: 04/16/18 Time: 1358 hours HISTORY: Dyspnea. FINDINGS/IMPRESSION: Comparison made with exam of 08/18/17. The heart is enlarged. There is mild pulmonary vascular congestion with small bilateral pleural effus ions. No pneumothoraces or lobar consolidation seen. POS: [facility]
[2018-04-16] MEDS ORDERED: Furosemide 40 MG/4 ML VIAL ONE (14:53)
[2018-04-16] MEDS ORDERED: Potassium Chloride 20 MEQ TAB ONE (14:54)
== END 2018-04-16 15:23 | disposition short-term general hospital (02) ==
LOC: BURERS 13:44
DX: I50.9 Heart failure, unspecified (principal); I48.91 Unspecified atrial fibrillation; E03.9 Hypothyroidism, unspecified; E78.5 Hyperlipidemia, unspecified; Z87.891 Personal history of nicotine dependence; Z79.891 Long term (current) use of opiate analgesic; Z79.01 Long term (current) use of anticoagulants
CPT/HCPCS: 71045; 80053; 82553; 83880; 84443; 84484; 85025; 85379; 93005; 96374; J1940

== ENCOUNTER 2018-04-21 17:44 | Inpatient (IN) | payer MEDICARE ==
[2018-04-21] MEDS: HYDROcodone/Acetaminophen 7.5/325 mg Tablet PO PRN (23:22)
[2018-04-21] MEDS: Lorazepam 0.5 MG TAB PO PRN (23:23)
[2018-04-22] MEDS: traMADol HCl 50 MG TAB PO PRN (04:43)
[2018-04-22] MEDS: tiZANidine HCl 4 MG TAB PO PRN (04:45)
[2018-04-22 06:04] LABS: ALT (SGPT) 18 U/L (8-55); AST (SGOT) 26 U/L (5-34); Alkaline Phosphatase 76 U/L (40-150); Anion Gap 15 mmol/L (10-20); BUN (Urea Nitrogen) 44 mg/dL (8.4-25.7); Calc. Creatinine Clearance 101 mL/min (70-130); Calcium 9.8 mg/dL (7.8-10.44); Carbon Dioxide 31 mmol/L (23-31); Chloride 96 mmol/L (98-107); Estimated GFR-MDRD 74; Glucose 107 mg/dL (83-110); Potassium 3.6 mmol/L (3.5-5.1); Sodium 138 mmol/L (136-145)
[2018-04-22 06:14] LABS: #Basophils 0.1 thou/uL (0.0-0.2); #Eosinphils 0.2 thou/uL (0.0-0.7); #Lymphocytes 0.7 thou/uL (1.20-3.40); #Monocytes 0.7 thou/uL (0.11-0.59); %Eosinophils 2.3 % (0.0-10.0); %Lymphocytes 8.8 % (21.0-51.0); %Monocytes 8.5 % (0.0-10.0); %Neutrophils 79.3 % (42.0-75.0); Hemoglobin 9.9 g/dL (14.0-18.0); Mean Corpuscular HGB CONC 33.2 g/dL (32.0-36.0); Mean Corpuscular Hemoglobin 25.9 pg (27.0-31.0); Mean Platelet Volume 6.1 fL (7.4-10.4); Platelet Count 154 thou/uL (130-400); RBC Distribution Width 14.7 % (11.5-14.5); Red Blood Cell (RBC) Count 3.81 mill/uL (4.70-6.10); White Blood Cell (WBC) Count 7.6 thou/uL (4.8-10.8)
[2018-04-22] MEDS: Levothyroxine Sodium 100 MCG TAB PO SCH (06:17)
[2018-04-22] MEDS: Levothyroxine Sodium 25 MCG TAB PO SCH (06:17)
[2018-04-22] MEDS ORDERED: Ondansetron ODT 4 MG TAB PO PRN (07:24)
[2018-04-22] MEDS: Furosemide 40 MG TAB PO SCH ×2 (08:26→20:29)
[2018-04-22] MEDS: Potassium Chloride 10 MEQ TAB PO SCH (08:27)
[2018-04-22] MEDS: Loratadine 10 MG TAB PO SCH (08:27)
[2018-04-22] MEDS: Alogliptin 25 MG TAB PO SCH (08:28)
[2018-04-22] MEDS: Metolazone 5 MG TAB PO SCH (08:29)
[2018-04-22] MEDS: Amiodarone 200 MG TAB PO SCH (08:29)
--- NOTE | 2018-04-22 11:24 | RAD ---
CHEST TWO VIEWS: 04/22/2018 COMPARISON: Study from [facility] on 04/19/2018. FINDINGS: The heart is normal in size today. There are no congestive changes. There might be a small amount o f pleural fluid on the right. Bibasilar streaky infiltrates are present. This is presumably pneumon ia. The upper lobes re relatively clear. Calcification is suggested in the aortic arch. IMPRESSION: Streaky bibasilar infiltrates, left slightly greater than right. POS: HOME
[2018-04-22] MEDS ORDERED: [UNRECOGNIZED DRUG - OTHER] TOP PRN (12:35)
[2018-04-22] MEDS: HYDROcodone/Acetaminophen 7.5/325 mg Tablet PO PRN (13:55)
[2018-04-22] MEDS: Warfarin Sodium 2.5 MG TAB PO SCH (16:56)
[2018-04-22] MEDS: Warfarin Sodium 5 MG TAB PO SCH (16:56)
[2018-04-22] MEDS: Lorazepam 0.5 MG TAB PO PRN (18:23)
[2018-04-22] MEDS: Potassium Chloride 20 MEQ TAB PO SCH (20:28)
[2018-04-22] MEDS: Docusate 100 MG CAP PO SCH (20:29)
[2018-04-22] MEDS: guaiFENesin ER 600 MG TAB PO SCH (20:29)
[2018-04-22] MEDS: busPIRone HCl 5 MG TAB PO SCH (20:29)
[2018-04-22] MEDS: Pregabalin 75 MG CAP PO SCH (20:29)
[2018-04-22] MEDS: Atorvastatin Calcium 40 MG TAB PO SCH (20:29)
[2018-04-23] MEDS: tiZANidine HCl 4 MG TAB PO PRN (02:05)
[2018-04-23] MEDS: HYDROcodone/Acetaminophen 7.5/325 mg Tablet PO PRN ×2 (02:05→10:42)
[2018-04-23] MEDS: Levothyroxine Sodium 100 MCG TAB PO SCH (06:11)
[2018-04-23] MEDS: Levothyroxine Sodium 25 MCG TAB PO SCH (06:11)
[2018-04-23 07:48] LABS: INR-International Normal Ratio 2.2; Prothrombin Time 24.6 SEC (12.0-14.7)
[2018-04-23] MEDS: Potassium Chloride 10 MEQ TAB PO SCH (08:42)
[2018-04-23] MEDS: busPIRone HCl 5 MG TAB PO SCH ×2 (08:42→20:22)
[2018-04-23] MEDS: guaiFENesin ER 600 MG TAB PO SCH ×2 (08:42→20:23)
[2018-04-23] MEDS: Alogliptin 25 MG TAB PO SCH (08:43)
[2018-04-23] MEDS: Loratadine 10 MG TAB PO SCH (08:43)
[2018-04-23] MEDS: Furosemide 40 MG TAB PO SCH ×2 (08:43→14:52)
[2018-04-23] MEDS: Amiodarone 200 MG TAB PO SCH (08:44)
[2018-04-23] MEDS: Metolazone 5 MG TAB PO SCH (09:38)
[2018-04-23] MEDS: Vitamin B Complex [Vitamin B Complex] 1 CAP PO SCH (09:39)
[2018-04-23] MEDS: traMADol HCl 50 MG TAB PO PRN (14:52)
[2018-04-23] MEDS ORDERED: Metolazone 5 MG TAB PO PRN (17:07)
[2018-04-23] MEDS: Warfarin Sodium 5 MG TAB PO SCH (18:22)
[2018-04-23] MEDS: Warfarin Sodium 2.5 MG TAB PO SCH (18:23)
[2018-04-23] MEDS ORDERED: Ketorolac Tromethamine 30 MG/ML VIAL ONE (18:50)
[2018-04-23] MEDS: Ketorolac Tromethamine 30 MG/ML VIAL IVP PRN (19:11)
[2018-04-23] MEDS: Pregabalin 75 MG CAP PO SCH (20:21)
[2018-04-23] MEDS: Lidocaine 5% Patch TD SCH (20:21)
[2018-04-23] MEDS: Atorvastatin Calcium 40 MG TAB PO SCH (20:22)
[2018-04-23] MEDS: Docusate 100 MG CAP PO SCH (20:22)
[2018-04-23] MEDS: Potassium Chloride 20 MEQ TAB PO SCH (20:23)
[2018-04-24] MEDS ORDERED: Ketorolac Tromethamine 30 MG/ML VIAL ONE ×2 (01:54→18:01)
[2018-04-24] MEDS: Ketorolac Tromethamine 30 MG/ML VIAL IVP PRN ×2 (02:00→18:07)
[2018-04-24 05:14] LABS: Hemoglobin 9.2 g/dL (14.0-18.0); Platelet Count 127 thou/uL (130-400)
[2018-04-24 05:27] LABS: Prothrombin Time 25.1 SEC (12.0-14.7)
[2018-04-24 05:28] LABS: INR-International Normal Ratio 2.3
[2018-04-24] MEDS: Levothyroxine Sodium 100 MCG TAB PO SCH (05:47)
[2018-04-24] MEDS: Levothyroxine Sodium 25 MCG TAB PO SCH (05:48)
[2018-04-24] MEDS: busPIRone HCl 5 MG TAB PO SCH ×2 (09:07→20:43)
[2018-04-24] MEDS: Alogliptin 25 MG TAB PO SCH (09:08)
[2018-04-24] MEDS: Furosemide 40 MG TAB PO SCH ×2 (09:08→13:56)
[2018-04-24] MEDS: guaiFENesin ER 600 MG TAB PO SCH ×2 (09:08→20:43)
[2018-04-24] MEDS: Loratadine 10 MG TAB PO SCH (09:08)
[2018-04-24] MEDS: Potassium Chloride 10 MEQ TAB PO SCH (09:09)
[2018-04-24] MEDS: Vitamin B Complex [Vitamin B Complex] 1 CAP PO SCH (09:12)
[2018-04-24] MEDS: Lidocaine Patch Removal 1 EACH TOP SCH (09:31)
[2018-04-24] MEDS: traMADol HCl 50 MG TAB PO PRN ×2 (09:40→23:23)
[2018-04-24] MEDS: Warfarin Sodium 2.5 MG TAB PO SCH (17:23)
[2018-04-24] MEDS: Warfarin Sodium 5 MG TAB PO SCH (17:23)
[2018-04-24] MEDS: Potassium Chloride 20 MEQ TAB PO SCH (20:43)
[2018-04-24] MEDS: Pregabalin 75 MG CAP PO SCH (20:43)
[2018-04-24] MEDS: Docusate 100 MG CAP PO SCH (20:43)
[2018-04-24] MEDS: Atorvastatin Calcium 40 MG TAB PO SCH (20:43)
[2018-04-24] MEDS: Lidocaine 5% Patch TD SCH (20:45)
[2018-04-24] MEDS: Lorazepam 0.5 MG TAB PO PRN (23:23)
[2018-04-25 05:25] LABS: Hemoglobin 9.8 g/dL (14.0-18.0); Platelet Count 161 thou/uL (130-400)
[2018-04-25 05:26] LABS: #Basophils 0.1 thou/uL (0.0-0.2); #Eosinphils 0.3 thou/uL (0.0-0.7); #Lymphocytes 1.2 thou/uL (1.20-3.40); #Monocytes 0.7 thou/uL (0.11-0.59); #Neutrophils 5.6 thou/uL (1.40-6.50); %Basophils 1.2 % (0.0-1.0); %Eosinophils 3.6 % (0.0-10.0); %Lymphocytes 15.4 % (21.0-51.0); %Monocytes 8.9 % (0.0-10.0); Hemoglobin 9.8 g/dL (14.0-18.0); Mean Corpuscular HGB CONC 34.3 g/dL (32.0-36.0); Mean Corpuscular Hemoglobin 26.7 pg (27.0-31.0); Mean Corpuscular Volume 77.7 fL (78.0-98.0); Mean Platelet Volume 6.9 fL (7.4-10.4); Platelet Count 155 thou/uL (130-400); RBC Distribution Width 14.9 % (11.5-14.5); Red Blood Cell (RBC) Count 3.66 mill/uL (4.70-6.10); White Blood Cell (WBC) Count 7.8 thou/uL (4.8-10.8)
[2018-04-25] MEDS: Levothyroxine Sodium 25 MCG TAB PO SCH (05:37)
[2018-04-25] MEDS: Levothyroxine Sodium 100 MCG TAB PO SCH (05:37)
[2018-04-25 05:41] LABS: ALT (SGPT) 16 U/L (8-55); AST (SGOT) 26 U/L (5-34); Albumin 3.7 g/dL (3.4-4.8); Alkaline Phosphatase 69 U/L (40-150); Anion Gap 14 mmol/L (10-20); BUN (Urea Nitrogen) 56 mg/dL (8.4-25.7); Bilirubin, Total 1.1 mg/dL (0.2-1.2); Calc. Creatinine Clearance 79 mL/min (70-130); Calcium 9.2 mg/dL (7.8-10.44); Carbon Dioxide 27 mmol/L (23-31); Chloride 100 mmol/L (98-107); Estimated GFR-MDRD 56; Globulin 3.8 g/dL (2.4-3.5); Glucose 74 mg/dL (83-110); Potassium 4.3 mmol/L (3.5-5.1); Protein, Total 7.5 g/dL (5.8-8.1); Sodium 137 mmol/L (136-145)
[2018-04-25 05:45] LABS: INR-International Normal Ratio 2.3; Prothrombin Time 25.2 SEC (12.0-14.7)
--- NOTE | 2018-04-25 07:24 | RAD ---
CHEST 2 VIEWS: DATE: 04/25/18. FINDINGS: Comparison is made with a 04/22 study. There has been improvement in the bibasilar infiltrates over t he interval. There are still some remaining, particularly in the left lower lobe. The heart size is slightly larger than it was before but still within limits of normal. There are no large effusions. The upper lobes are clear. IMPRESSION: Basilar infiltrates improving, though residual is still present. POS: HOME
[2018-04-25] MEDS: busPIRone HCl 5 MG TAB PO SCH ×2 (08:23→20:48)
[2018-04-25] MEDS: Alogliptin 25 MG TAB PO SCH (08:24)
[2018-04-25] MEDS: Potassium Chloride 10 MEQ TAB PO SCH (08:24)
[2018-04-25] MEDS: Furosemide 40 MG TAB PO SCH ×2 (08:25→14:48)
[2018-04-25] MEDS: Loratadine 10 MG TAB PO SCH (08:25)
[2018-04-25] MEDS: guaiFENesin ER 600 MG TAB PO SCH ×2 (08:25→20:48)
[2018-04-25] MEDS: Vitamin B Complex [Vitamin B Complex] 1 CAP PO SCH (08:30)
[2018-04-25] MEDS: Lidocaine Patch Removal 1 EACH TOP SCH (08:59)
[2018-04-25] MEDS: traMADol HCl 50 MG TAB PO PRN (14:47)
[2018-04-25] MEDS: Warfarin Sodium 2.5 MG TAB PO SCH (17:17)
[2018-04-25] MEDS: Warfarin Sodium 5 MG TAB PO SCH (17:17)
[2018-04-25] MEDS: Potassium Chloride 20 MEQ TAB PO SCH (20:47)
[2018-04-25] MEDS: Docusate 100 MG CAP PO SCH (20:48)
[2018-04-25] MEDS: Pregabalin 75 MG CAP PO SCH (20:48)
[2018-04-25] MEDS: Atorvastatin Calcium 40 MG TAB PO SCH (20:48)
[2018-04-25] MEDS: Lidocaine 5% Patch TD SCH (20:50)
[2018-04-25] MEDS ORDERED: Ketorolac Tromethamine 30 MG/ML VIAL ONE (22:48)
[2018-04-25] MEDS: Lorazepam 0.5 MG TAB PO PRN (22:58)
[2018-04-25] MEDS: Ketorolac Tromethamine 30 MG/ML VIAL IVP PRN (23:00)
[2018-04-26 05:35] LABS: Hemoglobin 9.2 g/dL (14.0-18.0); Platelet Count 161 thou/uL (130-400)
[2018-04-26 06:06] LABS: Prothrombin Time 30.9 SEC (12.0-14.7)
[2018-04-26] MEDS: Levothyroxine Sodium 100 MCG TAB PO SCH (06:14)
[2018-04-26] MEDS: Levothyroxine Sodium 25 MCG TAB PO SCH (06:15)
[2018-04-26] MEDS: Potassium Chloride 10 MEQ TAB PO SCH (09:21)
[2018-04-26] MEDS: Loratadine 10 MG TAB PO SCH (09:21)
[2018-04-26] MEDS: busPIRone HCl 5 MG TAB PO SCH ×2 (09:22→20:00)
[2018-04-26] MEDS: guaiFENesin ER 600 MG TAB PO SCH ×2 (09:23→20:00)
[2018-04-26] MEDS: Furosemide 40 MG TAB PO SCH ×2 (09:24→14:05)
[2018-04-26] MEDS: Alogliptin 25 MG TAB PO SCH (09:25)
[2018-04-26] MEDS: Vitamin B Complex [Vitamin B Complex] 1 CAP PO SCH (09:27)
[2018-04-26] MEDS: Lidocaine Patch Removal 1 EACH TOP SCH (09:28)
[2018-04-26] MEDS: Warfarin Sodium 5 MG TAB PO SCH (17:54)
[2018-04-26] MEDS: Potassium Chloride 20 MEQ TAB PO SCH (20:00)
[2018-04-26] MEDS: Atorvastatin Calcium 40 MG TAB PO SCH (20:00)
[2018-04-26] MEDS: traMADol HCl 50 MG TAB PO PRN (20:01)
[2018-04-26] MEDS: Docusate 100 MG CAP PO SCH (20:01)
[2018-04-26] MEDS: Pregabalin 75 MG CAP PO SCH (20:02)
[2018-04-26] MEDS: Lidocaine 5% Patch TD SCH (20:02)
[2018-04-26] MEDS: Lorazepam 0.5 MG TAB PO PRN (23:02)
[2018-04-27 05:37] LABS: INR-International Normal Ratio 3.2; Prothrombin Time 32.6 SEC (12.0-14.7)
[2018-04-27 05:39] LABS: Platelet Count 154 thou/uL (130-400)
[2018-04-27] MEDS: Levothyroxine Sodium 100 MCG TAB PO SCH (05:44)
[2018-04-27] MEDS: Levothyroxine Sodium 25 MCG TAB PO SCH (05:44)
[2018-04-27] MEDS: Potassium Chloride 10 MEQ TAB PO SCH (08:35)
[2018-04-27] MEDS: Vitamin B Complex [Vitamin B Complex] 1 CAP PO SCH (08:35)
[2018-04-27] MEDS: Alogliptin 25 MG TAB PO SCH (08:35)
[2018-04-27] MEDS: traMADol HCl 50 MG TAB PO PRN ×2 (08:36→22:34)
[2018-04-27] MEDS: busPIRone HCl 5 MG TAB PO SCH ×2 (08:36→21:25)
[2018-04-27] MEDS: Polyethylene Glycol 3350 17 GM Packet PO PRN (08:36)
[2018-04-27] MEDS: guaiFENesin ER 600 MG TAB PO SCH ×2 (08:36→21:25)
[2018-04-27] MEDS: Loratadine 10 MG TAB PO SCH (08:36)
[2018-04-27] MEDS: Furosemide 40 MG TAB PO SCH ×2 (08:36→13:43)
[2018-04-27] MEDS: Lidocaine Patch Removal 1 EACH TOP SCH (08:43)
[2018-04-27] MEDS: Warfarin Sodium 5 MG TAB PO SCH (13:41)
[2018-04-27] MEDS: Ketorolac Tromethamine 30 MG/ML VIAL IVP PRN (13:54)
[2018-04-27] MEDS: Potassium Chloride 20 MEQ TAB PO SCH (21:25)
[2018-04-27] MEDS: Lidocaine 5% Patch TD SCH (21:25)
[2018-04-27] MEDS: Docusate 100 MG CAP PO SCH (21:25)
[2018-04-27] MEDS: Atorvastatin Calcium 40 MG TAB PO SCH (21:25)
[2018-04-27] MEDS: Pregabalin 75 MG CAP PO SCH (21:26)
[2018-04-27] MEDS: Lorazepam 0.5 MG TAB PO PRN (22:33)
[2018-04-28 04:56] LABS: Hemoglobin 9.3 g/dL (14.0-18.0); Platelet Count 163 thou/uL (130-400)
[2018-04-28] MEDS: Levothyroxine Sodium 25 MCG TAB PO SCH (05:00)
[2018-04-28] MEDS: Levothyroxine Sodium 100 MCG TAB PO SCH (05:00)
[2018-04-28 05:14] LABS: INR-International Normal Ratio 3.5; Prothrombin Time 35.1 SEC (12.0-14.7)
[2018-04-28 06:06] VITALS: BMI 37.1
[2018-04-28] MEDS: Potassium Chloride 10 MEQ TAB PO SCH (09:42)
[2018-04-28] MEDS: Alogliptin 25 MG TAB PO SCH (09:42)
[2018-04-28] MEDS: busPIRone HCl 5 MG TAB PO SCH (09:42)
[2018-04-28] MEDS: guaiFENesin ER 600 MG TAB PO SCH (09:42)
[2018-04-28] MEDS: Loratadine 10 MG TAB PO SCH (09:43)
[2018-04-28] MEDS: Furosemide 40 MG TAB PO SCH ×2 (09:43→13:32)
[2018-04-28] MEDS: Vitamin B Complex [Vitamin B Complex] 1 CAP PO SCH (09:43)
[2018-04-28] MEDS: Polyethylene Glycol 3350 17 GM Packet PO PRN (09:44)
[2018-04-28] MEDS: Lidocaine Patch Removal 1 EACH TOP SCH (09:47)
[2018-04-28] MEDS: traMADol HCl 50 MG TAB PO PRN (11:46)
[2018-04-28] MEDS: Warfarin Sodium 5 MG TAB PO SCH (15:09)
[2018-04-28 18:08] VITALS: BP 109/52; TEMP 97.5
--- NOTE | 2018-04-29 03:00 | DIS ---
DATE OF ADMISSION: 04/22/2018 DATE OF DISCHARGE: 04/28/2018 ADMISSION DIAGNOSES: Physical deconditioning, chronic diastolic congestive heart failure, lymphedema, status post [id number] myocardial infarction due to demand ischemia, chronic atrial fibrillation, and obstructive sleep apnea , community acquired pneumonia. SECONDARY DIAGNOSIS: Chronic right shoulder pain. PROCEDURES: 04/22/2018, chest x-ray showing streaky bibasilar infiltrates, left slightly greater than right. 04/25/2018, chest x-ray showing basilar infiltrates improving, though residual is still present. HOSPITAL COURSE: This is a 77-year-old male with underlying chronic diastolic congestive heart failure, lymphedema, atrial fibrillation, and obstructive sleep apnea, who was admitted to [facility] in [place] for shortness of breath, lethargy, and hypoxia. The patient had not been using his CPAP as instructed. Imaging did reveal pulmonary vascular congestion; however, he was deemed not to be volume overloaded. Cardiac enzymes were elevated and he did undergo a stress test, which revealed no reversible or fixed defect with a 67% ejection fraction. Cardiology did recommend for the patient to transition from a daily metolazone to p.r.n. daily metolazone dosing ; Amiodarone was discontinued and Metoprolol initiated. During his stay, he was noted to have basilar infiltrates, for which he was treated with IV meropenem. After stabilization, he was transferred to our facility [facility] secondary to his physical deconditioning in order to participate with PT and OT and finish out a course of antibiotics for basilar infiltrates. The patient did have notable improvements per his x-ray readings with receiving a course of p.o. Levaquin. He remained afebrile with no leukocytosis during his stay. His respiratory status remained stable, as did his volume status. CPAP was worn consistently. Pt has chronic right shoulder pain which improved with Toradol; he will need to f/u with ortho as an outpt. He was able to effectively meet the goals set forth via PT and OT. He has been advised to continue PT and OT along with cardiac rehabilitation at [facility]. The patient feels to be back to his baseline status and is ambulatory with the use of his walker with no respiratory or cardiac compromise and is appropriate to discharge to his home setting. DISPOSITION: The patient will be discharged home where he lives with his and will continue PT, OT, and cardiac rehab at [facility] and may follow up with myself in the clinic in a week and he is to follow up with Dr. Perdomo, Cardiology, on 05/13/2018. DISCHARGE MEDICATIONS: Include omeprazole 20 mg p.o. daily, Tradjenta 5 mg p.o. daily, metolazone 5 mg p.o. daily p.r.n., furosemide 40 mg p.o. b.i.d., levothyroxine 325 mcg p.o. daily, potassium chloride 30 mEq p.o. daily and 20 mEq p.o. at bedtime, Zyrtec 10 mg p.o. daily, lorazepam 1 mg p.o. daily, tramadol 50 mg p.o., Ambien 10 mg p.o. at bedtime, Coumadin 7.5 mg Saturday and Saturday with 1-1/2 tablets every other day, atorvastatin 40 mg p.o. daily, Lyrica 75 mg p.o. daily, buspirone 15 mg p.o. b.i.d., metoprolol succinate 25 mg p.o. daily. MTDD
== END 2018-04-28 18:35 | disposition home or self-care (01) | DRG 280 ==
LOC: BURMED 22:15
PROVIDERS: ADMIT Family Medicine; ATTEND Family Medicine
DX: I21.A1 Myocardial infarction type 2 (principal); J18.9 Pneumonia, unspecified organism; I50.32 Chronic diastolic (congestive) heart failure; I48.2 Chronic atrial fibrillation; G47.33 Obstructive sleep apnea (adult) (pediatric); R53.81 Other malaise; G89.29 Other chronic pain; M25.511 Pain in right shoulder; E03.9 Hypothyroidism, unspecified; Z66 Do not resuscitate; E66.01 Morbid (severe) obesity due to excess calories; Z68.37 Body mass index [BMI] 37.0-37.9, adult; I11.0 Hypertensive heart disease with heart failure; E78.5 Hyperlipidemia, unspecified; I89.0 Lymphedema, not elsewhere classified; Z88.0 Allergy status to penicillin; Z79.01 Long term (current) use of anticoagulants; Z79.899 Other long term (current) drug therapy
CPT/HCPCS: 36415; 71046; 80053; 85014; 85018; 85025; 85049; 85610; A4216; G8978-GP-CL; G8979-GP-CJ; G8987-GO-CL; J1885

== ENCOUNTER 2019-04-08 19:26 | Inpatient (IN) | payer MEDICARE ==
[2019-04-08] MEDS ORDERED: busPIRone HCl 5 MG TAB PO SCH (23:00)
[2019-04-08] MEDS ORDERED: Melatonin 3 MG TAB PO SCH (23:00)
[2019-04-08] MEDS ORDERED: HYDROcodone/Acetaminophen 5/325 mg Tablet PO PRN (23:54)
[2019-04-09] MEDS: HYDROcodone/Acetaminophen 5/325 mg Tablet PO PRN (00:09)
[2019-04-09] MEDS ORDERED: Levothyroxine Sodium 100 MCG TAB PO SCH (06:00)
[2019-04-09] MEDS ORDERED: Levothyroxine Sodium 25 MCG TAB PO SCH (06:00)
[2019-04-09] MEDS ORDERED: Nystatin Powder 15 GM BOT TOP PRN (07:30)
[2019-04-09] MEDS ORDERED: Non-Formulary Item 1 EACH (Buspirone Hcl [Buspirone Hcl] 15 MG) PO SCH (09:00)
[2019-04-09] MEDS: Stress 600 With Zinc 1 TAB PO SCH (09:17)
[2019-04-09] MEDS: busPIRone HCl 5 MG TAB PO SCH ×2 (09:18→20:58)
[2019-04-09] MEDS: Furosemide 20 MG TAB PO SCH ×2 (09:18→20:59)
[2019-04-09] MEDS: Ferrous Sulfate 325 MG TAB PO SCH (09:19)
[2019-04-09] MEDS: Loratadine 10 MG TAB PO SCH (09:20)
[2019-04-09] MEDS: Polyethylene Glycol 3350 17 GM Packet PO SCH ×2 (09:20→20:57)
[2019-04-09] MEDS: Warfarin Sodium 7.5 MG TAB PO SCH (16:27)
[2019-04-09] MEDS: Potassium Chloride 20 MEQ TAB PO SCH (16:27)
[2019-04-09] MEDS: Melatonin 3 MG TAB PO SCH (20:58)
[2019-04-09] MEDS: Atorvastatin Calcium 40 MG TAB PO SCH (20:58)
[2019-04-09] MEDS: Docusate 100 MG CAP PO SCH (20:59)
[2019-04-09] MEDS: traMADol HCl 50 MG TAB PO PRN (21:00)
[2019-04-09] MEDS ORDERED: Non-Formulary Item 1 EACH (Melatonin [Melatonin] 5 MG) PO SCH (21:00)
[2019-04-09] MEDS: Pregabalin 75 MG CAP PO SCH (21:01)
[2019-04-10 04:38] LABS: ALT (SGPT) 24 U/L (8-55); AST (SGOT) 27 U/L (5-34); Alkaline Phosphatase 83 U/L (40-150); Anion Gap 13 mmol/L (10-20); BUN (Urea Nitrogen) 14 mg/dL (8.4-25.7); Bilirubin, Total 1.1 mg/dL (0.2-1.2); CK (CPK) 71 U/L (30-200); Calc. Creatinine Clearance 121 mL/min (70-130); Carbon Dioxide 23 mmol/L (23-31); Chloride 109 mmol/L (98-107); Estimated GFR-MDRD Greater than 90; Globulin 3.4 g/dL (2.4-3.5); Glucose 80 mg/dL (83-110); Potassium 3.9 mmol/L (3.5-5.1); Protein, Total 6.4 g/dL (5.8-8.1); Sodium 141 mmol/L (136-145)
[2019-04-10 04:56] LABS: #Basophils 0.1 thou/uL (0.0-0.2); #Eosinphils 0.4 thou/uL (0.0-0.7); #Lymphocytes 0.9 thou/uL (1.20-3.40); #Monocytes 0.6 thou/uL (0.11-0.59); #Neutrophils 3.6 thou/uL (1.40-6.50); %Basophils 1.6 % (0.0-1.0); %Eosinophils 6.4 % (0.0-10.0); %Lymphocytes 15.9 % (21.0-51.0); %Monocytes 10.5 % (0.0-10.0); %Neutrophils 65.7 % (42.0-75.0); Hemoglobin 7.2 g/dL (14.0-18.0); Mean Corpuscular HGB CONC 29.8 g/dL (32.0-36.0); Mean Corpuscular Hemoglobin 27.3 pg (27.0-31.0); Mean Corpuscular Volume 91.8 fL (78.0-98.0); Mean Platelet Volume 6.7 fL (7.4-10.4); Platelet Count 223 thou/uL (130-400); RBC Distribution Width 20.5 % (11.5-14.5); Red Blood Cell (RBC) Count 2.65 mill/uL (4.70-6.10); White Blood Cell (WBC) Count 5.5 thou/uL (4.8-10.8)
[2019-04-10 05:09] LABS: INR-International Normal Ratio 1.3; Prothrombin Time 16.1 SEC (12.0-14.7)
[2019-04-10 05:12] LABS: MDiff Complete? YES
[2019-04-10 05:15] LABS: Platelet Morphology Comment Appears Adequate; RBC Morphology Normal
[2019-04-10 05:16] LABS: Eosinophils 6 % (0-10)
[2019-04-10 05:17] LABS: Lymphocytes 17 % (21-51)
[2019-04-10 05:18] LABS: Neutrophil 65 % (42-75)
[2019-04-10 05:19] LABS: Monocytes 10 % (0-10)
[2019-04-10] MEDS ORDERED: Levothyroxine Sodium 25 MCG TAB PO SCH (06:00)
[2019-04-10] MEDS ORDERED: Levothyroxine Sodium 100 MCG TAB PO SCH (06:00)
[2019-04-10] MEDS: Levothyroxine Sodium 100 MCG TAB PO SCH (07:22)
[2019-04-10] MEDS: Polyethylene Glycol 3350 17 GM Packet PO SCH ×2 (09:23→20:35)
[2019-04-10] MEDS: Stress 600 With Zinc 1 TAB PO SCH (09:24)
[2019-04-10] MEDS: busPIRone HCl 5 MG TAB PO SCH ×2 (09:25→20:21)
[2019-04-10] MEDS: Loratadine 10 MG TAB PO SCH (09:26)
[2019-04-10] MEDS: Ferrous Sulfate 325 MG TAB PO SCH (09:26)
[2019-04-10] MEDS: Furosemide 20 MG TAB PO SCH ×2 (09:26→20:21)
[2019-04-10] MEDS: HYDROcodone/Acetaminophen 5/325 mg Tablet PO PRN ×2 (12:05→20:21)
[2019-04-10] MEDS: Potassium Chloride 20 MEQ TAB PO SCH (16:55)
[2019-04-10] MEDS: Atorvastatin Calcium 40 MG TAB PO SCH (20:21)
[2019-04-10] MEDS: Pregabalin 75 MG CAP PO SCH (20:23)
[2019-04-10] MEDS: Docusate 100 MG CAP PO SCH (20:35)
[2019-04-10] MEDS: Melatonin 3 MG TAB PO SCH (22:52)
[2019-04-10] MEDS: traMADol HCl 50 MG TAB PO PRN (23:01)
[2019-04-11] MEDS: HYDROcodone/Acetaminophen 5/325 mg Tablet PO PRN ×3 (05:11→23:22)
[2019-04-11 06:07] LABS: INR-International Normal Ratio 1.3; Prothrombin Time 16.1 SEC (12.0-14.7)
[2019-04-11] MEDS: Ferrous Sulfate 325 MG TAB PO SCH (08:45)
[2019-04-11] MEDS: Levothyroxine Sodium 100 MCG TAB PO SCH (09:06)
[2019-04-11] MEDS: Stress 600 With Zinc 1 TAB PO SCH (09:40)
[2019-04-11] MEDS: Furosemide 20 MG TAB PO SCH ×2 (09:45→22:13)
[2019-04-11] MEDS: busPIRone HCl 5 MG TAB PO SCH ×2 (09:45→22:12)
[2019-04-11] MEDS: Polyethylene Glycol 3350 17 GM Packet PO SCH ×2 (09:45→22:15)
[2019-04-11] MEDS: Loratadine 10 MG TAB PO SCH (10:23)
[2019-04-11] MEDS: Potassium Chloride 20 MEQ TAB PO SCH (17:03)
[2019-04-11] MEDS: Warfarin Sodium 7.5 MG TAB PO SCH (17:07)
[2019-04-11] MEDS: Atorvastatin Calcium 40 MG TAB PO SCH (22:13)
[2019-04-11] MEDS: Docusate 100 MG CAP PO SCH (22:13)
[2019-04-11] MEDS: Melatonin 3 MG TAB PO SCH (22:14)
[2019-04-11] MEDS: Pregabalin 75 MG CAP PO SCH (22:14)
[2019-04-12 05:42] LABS: INR-International Normal Ratio 1.3
[2019-04-12] MEDS: Levothyroxine Sodium 100 MCG TAB PO SCH (05:51)
[2019-04-12] MEDS: Ferrous Sulfate 325 MG TAB PO SCH (08:27)
[2019-04-12] MEDS: Furosemide 20 MG TAB PO SCH ×2 (09:32→22:45)
[2019-04-12] MEDS: Stress 600 With Zinc 1 TAB PO SCH (09:32)
[2019-04-12] MEDS: busPIRone HCl 5 MG TAB PO SCH ×2 (09:32→22:44)
[2019-04-12] MEDS: Loratadine 10 MG TAB PO SCH (09:32)
[2019-04-12] MEDS: Polyethylene Glycol 3350 17 GM Packet PO SCH ×2 (09:33→22:46)
[2019-04-12] MEDS: HYDROcodone/Acetaminophen 5/325 mg Tablet PO PRN ×2 (11:13→17:53)
[2019-04-12] MEDS: Potassium Chloride 20 MEQ TAB PO SCH (17:48)
[2019-04-12] MEDS: Docusate 100 MG CAP PO SCH (22:44)
[2019-04-12] MEDS: Melatonin 3 MG TAB PO SCH (22:44)
[2019-04-12] MEDS: Atorvastatin Calcium 40 MG TAB PO SCH (22:44)
[2019-04-12] MEDS: traMADol HCl 50 MG TAB PO PRN (22:45)
[2019-04-12] MEDS: Pregabalin 75 MG CAP PO SCH (22:46)
[2019-04-13 05:10] LABS: INR-International Normal Ratio 1.5; Prothrombin Time 17.8 SEC (12.0-14.7)
[2019-04-13 05:26] LABS: ALT (SGPT) 18 U/L (8-55); AST (SGOT) 20 U/L (5-34); Albumin 3.1 g/dL (3.4-4.8); Alkaline Phosphatase 110 U/L (40-150); Anion Gap 11 mmol/L (10-20); BUN (Urea Nitrogen) 15 mg/dL (8.4-25.7); Bilirubin, Total 0.9 mg/dL (0.2-1.2); Calc. Creatinine Clearance 116 mL/min (70-130); Calcium 8.9 mg/dL (7.8-10.44); Carbon Dioxide 28 mmol/L (23-31); Chloride 103 mmol/L (98-107); Estimated GFR-MDRD 89; Globulin 3.4 g/dL (2.4-3.5); Glucose 79 mg/dL (83-110); Potassium 3.9 mmol/L (3.5-5.1); Protein, Total 6.5 g/dL (5.8-8.1); Sodium 138 mmol/L (136-145)
[2019-04-13 06:03] LABS: #Basophils 0.1 thou/uL (0.0-0.2); #Eosinphils 0.3 thou/uL (0.0-0.7); #Monocytes 0.5 thou/uL (0.11-0.59); #Neutrophils 3.5 thou/uL (1.40-6.50); %Basophils 1.3 % (0.0-1.0); %Lymphocytes 18.4 % (21.0-51.0); %Monocytes 9.4 % (0.0-10.0); %Neutrophils 65.9 % (42.0-75.0); Anisocytosis SLIGHT = 6-15 cells (100X) (0-5/hpf); Hemoglobin 7.4 g/dL (14.0-18.0); MDiff Complete? YES; Mean Corpuscular HGB CONC 30.3 g/dL (32.0-36.0); Mean Corpuscular Hemoglobin 27.7 pg (27.0-31.0); Mean Corpuscular Volume 91.3 fL (78.0-98.0); Mean Platelet Volume 6.5 fL (7.4-10.4); Ovalocytes SLIGHT = 2-5 cells (100X) (0-1/hpf); Platelet Count 230 thou/uL (130-400); Platelet Morphology Comment Appears Adequate; RBC Distribution Width 21.6 % (11.5-14.5); Red Blood Cell (RBC) Count 2.69 mill/uL (4.70-6.10); White Blood Cell (WBC) Count 5.4 thou/uL (4.8-10.8)
[2019-04-13] MEDS: Levothyroxine Sodium 100 MCG TAB PO SCH (06:50)
[2019-04-13] MEDS: HYDROcodone/Acetaminophen 5/325 mg Tablet PO PRN ×2 (06:50→20:23)
[2019-04-13] MEDS: Stress 600 With Zinc 1 TAB PO SCH (09:48)
[2019-04-13] MEDS: Metolazone 5 MG TAB PO PRN (09:48)
[2019-04-13] MEDS: Loratadine 10 MG TAB PO SCH (09:48)
[2019-04-13] MEDS: busPIRone HCl 5 MG TAB PO SCH ×2 (09:48→21:11)
[2019-04-13] MEDS: Furosemide 20 MG TAB PO SCH ×2 (09:49→21:12)
[2019-04-13] MEDS: Ferrous Sulfate 325 MG TAB PO SCH (09:49)
[2019-04-13] MEDS: Polyethylene Glycol 3350 17 GM Packet PO SCH ×2 (09:51→21:15)
[2019-04-13] MEDS ORDERED: traMADol HCl 50 MG TAB ONE (11:45)
[2019-04-13] MEDS: traMADol HCl 50 MG TAB PO PRN (11:46)
[2019-04-13] MEDS ORDERED: Warfarin Sodium 5 MG TAB PO SCH (17:00)
[2019-04-13] MEDS: Potassium Chloride 20 MEQ TAB PO SCH (17:59)
[2019-04-13] MEDS: Atorvastatin Calcium 40 MG TAB PO SCH (21:10)
[2019-04-13] MEDS: Docusate 100 MG CAP PO SCH (21:11)
[2019-04-13] MEDS: Melatonin 3 MG TAB PO SCH (21:12)
[2019-04-13] MEDS: Pregabalin 75 MG CAP PO SCH (21:13)
[2019-04-14] MEDS: traMADol HCl 50 MG TAB PO PRN ×2 (00:30→14:55)
[2019-04-14 05:22] LABS: INR-International Normal Ratio 1.3; Prothrombin Time 15.7 SEC (12.0-14.7)
[2019-04-14] MEDS: Levothyroxine Sodium 100 MCG TAB PO SCH (06:33)
[2019-04-14] MEDS: Polyethylene Glycol 3350 17 GM Packet PO SCH ×2 (08:47→22:07)
[2019-04-14] MEDS: Stress 600 With Zinc 1 TAB PO SCH (08:51)
[2019-04-14] MEDS: busPIRone HCl 5 MG TAB PO SCH ×2 (08:51→22:02)
[2019-04-14] MEDS: Ferrous Sulfate 325 MG TAB PO SCH (08:51)
[2019-04-14] MEDS: Loratadine 10 MG TAB PO SCH (08:52)
[2019-04-14] MEDS: Furosemide 20 MG TAB PO SCH ×2 (08:52→22:02)
[2019-04-14] MEDS: HYDROcodone/Acetaminophen 5/325 mg Tablet PO PRN ×2 (10:08→22:05)
[2019-04-14] MEDS: Warfarin Sodium 7.5 MG TAB PO SCH (16:47)
[2019-04-14] MEDS: Potassium Chloride 20 MEQ TAB PO SCH (16:48)
[2019-04-14] MEDS: Pregabalin 75 MG CAP PO SCH (22:03)
[2019-04-14] MEDS: Melatonin 3 MG TAB PO SCH (22:03)
[2019-04-14] MEDS: Atorvastatin Calcium 40 MG TAB PO SCH (22:03)
[2019-04-14] MEDS: Docusate 100 MG CAP PO SCH (22:07)
[2019-04-15 05:18] LABS: INR-International Normal Ratio 1.3; Prothrombin Time 16.1 SEC (12.0-14.7)
[2019-04-15] MEDS: Levothyroxine Sodium 100 MCG TAB PO SCH (05:40)
[2019-04-15] MEDS: Stress 600 With Zinc 1 TAB PO SCH (09:03)
[2019-04-15] MEDS: Furosemide 20 MG TAB PO SCH ×2 (09:03→21:27)
[2019-04-15] MEDS: Loratadine 10 MG TAB PO SCH (09:04)
[2019-04-15] MEDS: busPIRone HCl 5 MG TAB PO SCH ×2 (09:04→21:27)
[2019-04-15] MEDS: Ferrous Sulfate 325 MG TAB PO SCH (09:04)
[2019-04-15] MEDS: Polyethylene Glycol 3350 17 GM Packet PO SCH ×2 (09:04→21:28)
[2019-04-15] MEDS: HYDROcodone/Acetaminophen 5/325 mg Tablet PO PRN ×2 (11:31→17:41)
[2019-04-15] MEDS: Potassium Chloride 20 MEQ TAB PO SCH (16:36)
[2019-04-15] MEDS: Warfarin Sodium 7.5 MG TAB PO SCH (16:36)
[2019-04-15] MEDS: Lorazepam 0.5 MG TAB PO PRN (21:25)
[2019-04-15] MEDS: Pregabalin 75 MG CAP PO SCH (21:26)
[2019-04-15] MEDS: Docusate 100 MG CAP PO SCH (21:27)
[2019-04-15] MEDS: Atorvastatin Calcium 40 MG TAB PO SCH (21:27)
[2019-04-15] MEDS: traMADol HCl 50 MG TAB PO PRN (23:18)
[2019-04-15] MEDS: Melatonin 3 MG TAB PO SCH (23:18)
[2019-04-16] MEDS: Levothyroxine Sodium 100 MCG TAB PO SCH (06:10)
[2019-04-16 06:50] LABS: INR-International Normal Ratio 1.3; Prothrombin Time 16.1 SEC (12.0-14.7)
[2019-04-16] MEDS: Polyethylene Glycol 3350 17 GM Packet PO SCH ×2 (09:00→20:58)
[2019-04-16] MEDS: Stress 600 With Zinc 1 TAB PO SCH (09:01)
[2019-04-16] MEDS: Ferrous Sulfate 325 MG TAB PO SCH (09:01)
[2019-04-16] MEDS: busPIRone HCl 5 MG TAB PO SCH ×2 (09:01→20:59)
[2019-04-16] MEDS: Loratadine 10 MG TAB PO SCH (09:01)
[2019-04-16] MEDS: Furosemide 20 MG TAB PO SCH ×2 (09:01→21:00)
[2019-04-16] MEDS: HYDROcodone/Acetaminophen 5/325 mg Tablet PO PRN ×2 (09:08→16:14)
[2019-04-16] MEDS: Potassium Chloride 20 MEQ TAB PO SCH (16:16)
[2019-04-16] MEDS: Warfarin Sodium 5 MG TAB PO SCH (16:17)
[2019-04-16] MEDS: Pregabalin 75 MG CAP PO SCH (20:59)
[2019-04-16] MEDS: Docusate 100 MG CAP PO SCH (20:59)
[2019-04-16] MEDS: Melatonin 3 MG TAB PO SCH (21:00)
[2019-04-16] MEDS: Atorvastatin Calcium 40 MG TAB PO SCH (21:00)
[2019-04-16] MEDS: Lorazepam 0.5 MG TAB PO PRN (21:01)
[2019-04-16] MEDS: traMADol HCl 50 MG TAB PO PRN (22:05)
[2019-04-17 05:37] LABS: INR-International Normal Ratio 1.6; Prothrombin Time 18.5 SEC (12.0-14.7)
[2019-04-17] MEDS: Levothyroxine Sodium 100 MCG TAB PO SCH (05:38)
[2019-04-17] MEDS: Polyethylene Glycol 3350 17 GM Packet PO SCH ×2 (09:33→20:44)
[2019-04-17] MEDS: Metolazone 5 MG TAB PO PRN (09:34)
[2019-04-17] MEDS: Furosemide 20 MG TAB PO SCH ×2 (09:34→20:42)
[2019-04-17] MEDS: Ferrous Sulfate 325 MG TAB PO SCH (09:34)
[2019-04-17] MEDS: Loratadine 10 MG TAB PO SCH (09:35)
[2019-04-17] MEDS: Stress 600 With Zinc 1 TAB PO SCH (09:35)
[2019-04-17] MEDS: busPIRone HCl 5 MG TAB PO SCH ×2 (09:35→20:42)
[2019-04-17] MEDS: HYDROcodone/Acetaminophen 5/325 mg Tablet PO PRN ×2 (10:28→17:45)
[2019-04-17] MEDS: Potassium Chloride 20 MEQ TAB PO SCH (17:41)
[2019-04-17] MEDS: Warfarin Sodium 5 MG TAB PO SCH (17:41)
[2019-04-17] MEDS: Docusate 100 MG CAP PO SCH (20:41)
[2019-04-17] MEDS: Atorvastatin Calcium 40 MG TAB PO SCH (20:42)
[2019-04-17] MEDS: Melatonin 3 MG TAB PO SCH (20:42)
[2019-04-17] MEDS: Pregabalin 75 MG CAP PO SCH (20:44)
[2019-04-17] MEDS: traMADol HCl 50 MG TAB PO PRN (22:14)
[2019-04-17] MEDS: Lorazepam 0.5 MG TAB PO PRN (22:15)
[2019-04-18] MEDS: Levothyroxine Sodium 100 MCG TAB PO SCH (05:17)
[2019-04-18 05:46] LABS: INR-International Normal Ratio 1.8; Prothrombin Time 20.9 SEC (12.0-14.7)
[2019-04-18] MEDS: Furosemide 20 MG TAB PO SCH ×2 (11:21→21:00)
[2019-04-18] MEDS: busPIRone HCl 5 MG TAB PO SCH ×2 (11:22→20:59)
[2019-04-18] MEDS: Loratadine 10 MG TAB PO SCH (11:22)
[2019-04-18] MEDS: Ferrous Sulfate 325 MG TAB PO SCH (11:22)
[2019-04-18] MEDS: Stress 600 With Zinc 1 TAB PO SCH (11:22)
[2019-04-18] MEDS: Polyethylene Glycol 3350 17 GM Packet PO SCH ×2 (11:23→20:58)
[2019-04-18] MEDS: HYDROcodone/Acetaminophen 5/325 mg Tablet PO PRN (12:14)
[2019-04-18] MEDS: Warfarin Sodium 5 MG TAB PO SCH (18:55)
[2019-04-18] MEDS: Potassium Chloride 20 MEQ TAB PO SCH (18:56)
[2019-04-18] MEDS: Docusate 100 MG CAP PO SCH (20:58)
[2019-04-18] MEDS: Atorvastatin Calcium 40 MG TAB PO SCH (20:58)
[2019-04-18] MEDS: Pregabalin 75 MG CAP PO SCH (21:02)
[2019-04-18] MEDS: Melatonin 3 MG TAB PO SCH (22:37)
[2019-04-18] MEDS: traMADol HCl 50 MG TAB PO PRN (22:38)
[2019-04-18] MEDS: Lorazepam 0.5 MG TAB PO PRN (22:38)
[2019-04-19 05:54] LABS: Prothrombin Time 22.6 SEC (12.0-14.7)
[2019-04-19] MEDS: Levothyroxine Sodium 100 MCG TAB PO SCH (05:56)
[2019-04-19] MEDS: Ferrous Sulfate 325 MG TAB PO SCH (09:13)
[2019-04-19] MEDS: busPIRone HCl 5 MG TAB PO SCH ×2 (09:13→21:52)
[2019-04-19] MEDS: Polyethylene Glycol 3350 17 GM Packet PO SCH ×2 (09:13→21:54)
[2019-04-19] MEDS: Stress 600 With Zinc 1 TAB PO SCH (09:14)
[2019-04-19] MEDS: Furosemide 20 MG TAB PO SCH ×2 (09:14→21:53)
[2019-04-19] MEDS: Loratadine 10 MG TAB PO SCH (09:14)
[2019-04-19] MEDS: HYDROcodone/Acetaminophen 5/325 mg Tablet PO PRN (12:16)
[2019-04-19] MEDS: Warfarin Sodium 5 MG TAB PO SCH (17:13)
[2019-04-19] MEDS: Potassium Chloride 20 MEQ TAB PO SCH (17:14)
[2019-04-19] MEDS: Melatonin 3 MG TAB PO SCH (21:52)
[2019-04-19] MEDS: Atorvastatin Calcium 40 MG TAB PO SCH (21:53)
[2019-04-19] MEDS: Docusate 100 MG CAP PO SCH (21:53)
[2019-04-19] MEDS: Pregabalin 75 MG CAP PO SCH (21:53)
[2019-04-19] MEDS: traMADol HCl 50 MG TAB PO PRN (22:46)
[2019-04-19] MEDS: Lorazepam 0.5 MG TAB PO PRN (22:46)
[2019-04-20 05:28] LABS: Mean Corpuscular HGB CONC 30.3 g/dL (32.0-36.0); Mean Corpuscular Hemoglobin 27.2 pg (27.0-31.0); Mean Corpuscular Volume 89.9 fL (78.0-98.0); Mean Platelet Volume 6.9 fL (7.4-10.4); Platelet Count 164 thou/uL (130-400); RBC Distribution Width 20.4 % (11.5-14.5); Red Blood Cell (RBC) Count 2.95 mill/uL (4.70-6.10); White Blood Cell (WBC) Count 4.4 thou/uL (4.8-10.8)
[2019-04-20 05:32] LABS: INR-International Normal Ratio 2.1; Prothrombin Time 23.7 SEC (12.0-14.7)
[2019-04-20 05:38] LABS: ALT (SGPT) 11 U/L (8-55); AST (SGOT) 20 U/L (5-34); Albumin 3.2 g/dL (3.4-4.8); Alkaline Phosphatase 133 U/L (40-150); Anion Gap 13 mmol/L (10-20); BUN (Urea Nitrogen) 22 mg/dL (8.4-25.7); Bilirubin, Total 0.7 mg/dL (0.2-1.2); Calc. Creatinine Clearance 111 mL/min (70-130); Calcium 9.3 mg/dL (7.8-10.44); Carbon Dioxide 31 mmol/L (23-31); Chloride 97 mmol/L (98-107); Estimated GFR-MDRD 90; Globulin 3.5 g/dL (2.4-3.5); Glucose 82 mg/dL (83-110); Potassium 3.6 mmol/L (3.5-5.1); Protein, Total 6.7 g/dL (5.8-8.1); Sodium 137 mmol/L (136-145)
[2019-04-20 05:53] LABS: #Basophils 0.1 thou/uL (0.0-0.2); #Eosinphils 0.3 thou/uL (0.0-0.7); #Lymphocytes 0.8 thou/uL (1.20-3.40); #Monocytes 0.5 thou/uL (0.11-0.59); #Neutrophils 2.8 thou/uL (1.40-6.50); %Basophils 1.5 % (0.0-1.0); %Eosinophils 5.9 % (0.0-10.0); %Lymphocytes 18.1 % (21.0-51.0); %Monocytes 11.3 % (0.0-10.0); %Neutrophils 63.1 % (42.0-75.0); Anisocytosis SLIGHT = 6-15 cells (100X) (0-5/hpf); MDiff Complete? YES; Platelet Morphology Comment Appears Adequate
[2019-04-20] MEDS: Levothyroxine Sodium 100 MCG TAB PO SCH (06:43)
[2019-04-20] MEDS: Polyethylene Glycol 3350 17 GM Packet PO SCH ×2 (09:17→21:47)
[2019-04-20] MEDS: HYDROcodone/Acetaminophen 5/325 mg Tablet PO PRN (09:18)
[2019-04-20] MEDS: Ferrous Sulfate 325 MG TAB PO SCH (09:20)
[2019-04-20] MEDS: busPIRone HCl 5 MG TAB PO SCH ×2 (09:20→21:48)
[2019-04-20] MEDS: Furosemide 20 MG TAB PO SCH ×2 (09:21→21:50)
[2019-04-20] MEDS: Stress 600 With Zinc 1 TAB PO SCH (09:21)
[2019-04-20] MEDS: Loratadine 10 MG TAB PO SCH (09:21)
[2019-04-20] MEDS: Potassium Chloride 20 MEQ TAB PO SCH (16:44)
[2019-04-20] MEDS: Warfarin Sodium 5 MG TAB PO SCH (16:44)
[2019-04-20] MEDS: Pregabalin 75 MG CAP PO SCH (21:47)
[2019-04-20] MEDS: Docusate 100 MG CAP PO SCH (21:49)
[2019-04-20] MEDS: Atorvastatin Calcium 40 MG TAB PO SCH (21:49)
[2019-04-20] MEDS: Melatonin 3 MG TAB PO SCH (21:50)
[2019-04-20] MEDS ORDERED: Furosemide 20 MG TAB PO SCH (22:00)
[2019-04-20] MEDS: traMADol HCl 50 MG TAB PO PRN (22:39)
[2019-04-20] MEDS: Lorazepam 0.5 MG TAB PO PRN (22:39)
[2019-04-21 05:30] LABS: INR-International Normal Ratio 2.4; Prothrombin Time 26.2 SEC (12.0-14.7)
[2019-04-21] MEDS: Levothyroxine Sodium 100 MCG TAB PO SCH (06:15)
[2019-04-21] MEDS: Polyethylene Glycol 3350 17 GM Packet PO SCH ×2 (09:06→21:02)
[2019-04-21] MEDS: Furosemide 20 MG TAB PO SCH ×2 (09:06→21:01)
[2019-04-21] MEDS: busPIRone HCl 5 MG TAB PO SCH ×2 (09:06→21:01)
[2019-04-21] MEDS: Loratadine 10 MG TAB PO SCH (09:07)
[2019-04-21] MEDS: Ferrous Sulfate 325 MG TAB PO SCH (09:07)
[2019-04-21] MEDS: Stress 600 With Zinc 1 TAB PO SCH (09:07)
[2019-04-21] MEDS: HYDROcodone/Acetaminophen 5/325 mg Tablet PO PRN ×2 (11:14→17:50)
[2019-04-21] MEDS: Potassium Chloride 20 MEQ TAB PO SCH (16:39)
[2019-04-21] MEDS: Warfarin Sodium 5 MG TAB PO SCH (16:40)
[2019-04-21] MEDS: Pregabalin 75 MG CAP PO SCH (21:01)
[2019-04-21] MEDS: Docusate 100 MG CAP PO SCH (21:01)
[2019-04-21] MEDS: Atorvastatin Calcium 40 MG TAB PO SCH (21:02)
[2019-04-21] MEDS: Melatonin 3 MG TAB PO SCH (22:41)
[2019-04-21] MEDS: Lorazepam 0.5 MG TAB PO PRN (22:41)
[2019-04-21] MEDS: traMADol HCl 50 MG TAB PO PRN (22:42)
[2019-04-22 05:27] LABS: INR-International Normal Ratio 2.6
[2019-04-22] MEDS: Levothyroxine Sodium 100 MCG TAB PO SCH (06:43)
[2019-04-22] MEDS: Polyethylene Glycol 3350 17 GM Packet PO SCH ×2 (09:25→20:37)
[2019-04-22] MEDS: Ferrous Sulfate 325 MG TAB PO SCH (09:26)
[2019-04-22] MEDS: Stress 600 With Zinc 1 TAB PO SCH (09:26)
[2019-04-22] MEDS: busPIRone HCl 5 MG TAB PO SCH ×2 (09:26→20:36)
[2019-04-22] MEDS: Furosemide 20 MG TAB PO SCH ×2 (09:27→20:36)
[2019-04-22] MEDS: Loratadine 10 MG TAB PO SCH (09:27)
[2019-04-22 09:39] VITALS: BMI 34.1
[2019-04-22] MEDS: HYDROcodone/Acetaminophen 5/325 mg Tablet PO PRN (16:51)
[2019-04-22] MEDS: Potassium Chloride 20 MEQ TAB PO SCH (16:52)
[2019-04-22] MEDS: Warfarin Sodium 5 MG TAB PO SCH (16:55)
[2019-04-22] MEDS: Docusate 100 MG CAP PO SCH (20:35)
[2019-04-22] MEDS: Atorvastatin Calcium 40 MG TAB PO SCH (20:35)
[2019-04-22] MEDS: Pregabalin 75 MG CAP PO SCH (20:36)
[2019-04-22] MEDS: Lorazepam 0.5 MG TAB PO PRN (22:10)
[2019-04-22] MEDS: traMADol HCl 50 MG TAB PO PRN (22:10)
[2019-04-22] MEDS: Melatonin 3 MG TAB PO SCH (22:11)
[2019-04-22] MEDS: Diabetic Tussin 200 MG/10 ML UDCUP PO PRN (22:12)
[2019-04-23 05:29] LABS: INR-International Normal Ratio 2.7; Prothrombin Time 28.8 SEC (12.0-14.7)
[2019-04-23] MEDS: Levothyroxine Sodium 100 MCG TAB PO SCH (05:39)
[2019-04-23] MEDS: Ferrous Sulfate 325 MG TAB PO SCH (10:54)
[2019-04-23] MEDS: Polyethylene Glycol 3350 17 GM Packet PO SCH ×2 (10:54→20:39)
[2019-04-23] MEDS: busPIRone HCl 5 MG TAB PO SCH ×2 (10:54→20:38)
[2019-04-23] MEDS: Stress 600 With Zinc 1 TAB PO SCH (10:55)
[2019-04-23] MEDS: Loratadine 10 MG TAB PO SCH (10:55)
[2019-04-23] MEDS: Furosemide 20 MG TAB PO SCH ×2 (10:55→20:38)
[2019-04-23] MEDS: HYDROcodone/Acetaminophen 5/325 mg Tablet PO PRN (12:10)
[2019-04-23] MEDS: Warfarin Sodium 5 MG TAB PO SCH (16:28)
[2019-04-23] MEDS: Lorazepam 0.5 MG TAB PO PRN ×2 (16:30→22:51)
[2019-04-23] MEDS: Potassium Chloride 20 MEQ TAB PO SCH (16:32)
[2019-04-23] MEDS: Atorvastatin Calcium 40 MG TAB PO SCH (20:38)
[2019-04-23] MEDS: Docusate 100 MG CAP PO SCH (20:38)
[2019-04-23] MEDS: Pregabalin 75 MG CAP PO SCH (20:39)
[2019-04-23] MEDS: Diabetic Tussin 200 MG/10 ML UDCUP PO PRN (20:41)
[2019-04-23] MEDS: Melatonin 3 MG TAB PO SCH (22:00)
[2019-04-23] MEDS: traMADol HCl 50 MG TAB PO PRN (22:49)
[2019-04-24 04:41] LABS: INR-International Normal Ratio 2.9; Prothrombin Time 30.3 SEC (12.0-14.7)
[2019-04-24 05:33] VITALS: BP 107/58; TEMP 98.8
[2019-04-24] MEDS: Levothyroxine Sodium 100 MCG TAB PO SCH (05:38)
[2019-04-24] MEDS: busPIRone HCl 5 MG TAB PO SCH (09:21)
[2019-04-24] MEDS: Ferrous Sulfate 325 MG TAB PO SCH (09:21)
[2019-04-24] MEDS: Polyethylene Glycol 3350 17 GM Packet PO SCH (09:21)
[2019-04-24] MEDS: Stress 600 With Zinc 1 TAB PO SCH (09:21)
[2019-04-24] MEDS: Loratadine 10 MG TAB PO SCH (09:22)
[2019-04-24] MEDS: Furosemide 20 MG TAB PO SCH (09:22)
--- NOTE | 2019-04-25 03:32 | DIS ---
DATE OF ADMISSION: 04/08/2019 DATE OF DISCHARGE: 04/24/2019 ADMISSION DIAGNOSES: Physical deconditioning, left upper extremity laceration, acute blood loss anemia, status post rhabdomyolysis. SECONDARY DIAGNOSES: Atrial fibrillation, lymphedema, hypertension, dyslipidemia, and hypothyroidism. PROCEDURES: None. HOSPITAL COURSE: A 78-year-old male who transitioned from [facility] in [place] to our facility to participate with Physical Therapy and Occupational Therapy status post fall at home with resultant left upper extremity laceration and acute blood loss anemia along with rhabdomyolysis. The patient's laceration was sutured up. He was started on iron supplementation and he received intravenous fluids to correct his acute needs. Thereafter secondary to his physical deconditioning, he transitioned care to participate with Physical Therapy and Occupational Therapy. While here, the patient's labs were trended and his hemoglobin has steadily trended up. Secondary to the patient's fall risk, he had been evaluated by Cardiology with a potential plan for Watchman procedure to be done in regard to his chronic atrial fibrillation requiring Coumadin therapy. This is to be further followed up as an outpatient. The patient's intake and output remained at baseline while he was here. He steadily improved in regard to his ability to ambulate and transfer while working with Physical Therapy and Occupational therapy; he has subsequently met the requirements to be able to transition back to his home setting. He will continue further PT and OT with [facility]. He will resume his usual home medications. He is appropriately amenable to discharge back to his home setting at this time. DISPOSITION: The patient will be discharged home with his . He may follow up with myself in the clinic next week. He may further follow up with Cardiology as planned. DISCHARGE MEDICATIONS: Include: 1. Atorvastatin 40 mg at bedtime. 2. Cholecalciferol 1000 units daily. 3. Docusate 100 mg daily. 4. Ferrous sulfate 325 mg daily. 5. Lasix 40 mg p.o. b.i.d. 6. Guaifenesin as needed. 7. Levothyroxine 300 mcg daily. 8. Loratadine 10 mg daily. 9. Lorazepam 1 mg t.i.d. p.r.n. 10. Melatonin 9 mg p.o. at bedtime. 11. Metolazone 5 mg p.o. daily as needed. 12. Metoprolol succinate 25 mg daily. 13. Pantoprazole 40 mg daily. 14. MiraLAX 17 g p.o. b.i.d. as needed. 15. Potassium chloride 20 mEq p.o. daily. 16. Lyrica 75 mg p.o. at bedtime. 17. Tramadol 50 mg p.o. q.i.d. as needed. 18. Coumadin 7.5 mg p.o. Q2 days due to fall risk Job ID: [id number] [facility]
== END 2019-04-24 11:25 | disposition home health service (06) | DRG 949 ==
LOC: BURMED 19:31
PROVIDERS: ADMIT Family Medicine; ATTEND Family Medicine
DX: S41.112D Laceration without foreign body of left upper arm, subsequent encounter (principal); D62 Acute posthemorrhagic anemia; M62.82 Rhabdomyolysis; W19.XXXD Unspecified fall, subsequent encounter; I89.0 Lymphedema, not elsewhere classified; I10 Essential (primary) hypertension; E78.5 Hyperlipidemia, unspecified; E03.9 Hypothyroidism, unspecified; I48.2 Chronic atrial fibrillation; I73.9 Peripheral vascular disease, unspecified; J44.9 Chronic obstructive pulmonary disease, unspecified; I87.2 Venous insufficiency (chronic) (peripheral); R53.81 Other malaise; Z98.49 Cataract extraction status, unspecified eye; Z88.1 Allergy status to other antibiotic agents; Z87.891 Personal history of nicotine dependence
CPT/HCPCS: 36415; 80053; 82550; 85025; 85610; 97602

== ENCOUNTER 2019-05-22 15:22 | Inpatient (IN) | payer MEDICARE ==
[2019-05-22] MEDS ORDERED: Metolazone 5 MG TAB PO PRN (18:56)
[2019-05-22] MEDS: Polyethylene Glycol 3350 17 GM Packet PO SCH (21:18)
[2019-05-22] MEDS: Melatonin 3 MG TAB PO SCH (21:19)
[2019-05-22] MEDS: busPIRone HCl 5 MG TAB PO SCH (21:19)
[2019-05-22] MEDS: Docusate 100 MG CAP PO SCH (21:19)
[2019-05-22] MEDS: Enoxaparin Sodium 100 MG/ML SYRINGE SC SCH (21:20)
[2019-05-22] MEDS: Potassium Chloride 20 MEQ TAB PO SCH (21:20)
[2019-05-22] MEDS: Artificial Tear Sol 15 ML BOT R EYE SCH (21:20)
[2019-05-22] MEDS: Atorvastatin Calcium 40 MG TAB PO SCH (21:20)
[2019-05-22] MEDS: Furosemide 40 MG TAB PO SCH (21:20)
[2019-05-23] MEDS: Acetaminophen 325 MG TAB PO PRN (03:11)
[2019-05-23] MEDS: Lorazepam 0.5 MG TAB PO PRN ×2 (03:11→21:38)
[2019-05-23 05:35] LABS: INR-International Normal Ratio 1.3; Prothrombin Time 16.1 SEC (12.0-14.7)
[2019-05-23] MEDS: Levothyroxine Sodium 100 MCG TAB PO SCH (07:30)
[2019-05-23] MEDS ORDERED: Enoxaparin Sodium 100 MG/ML SYRINGE SC SCH (10:30)
[2019-05-23] MEDS: Alogliptin 25 MG TAB PO SCH (10:39)
[2019-05-23] MEDS: Artificial Tear Sol 15 ML BOT R EYE SCH ×2 (10:40→21:38)
[2019-05-23] MEDS: busPIRone HCl 5 MG TAB PO SCH ×2 (10:41→20:58)
[2019-05-23] MEDS: Enoxaparin Sodium 100 MG/ML SYRINGE SC SCH ×2 (10:42→21:06)
[2019-05-23] MEDS: Furosemide 40 MG TAB PO SCH ×2 (10:43→20:59)
[2019-05-23] MEDS: Ferrous Sulfate 325 MG TAB PO SCH (10:43)
[2019-05-23] MEDS: Loratadine 10 MG TAB PO SCH (10:45)
[2019-05-23] MEDS: Stress 600 With Zinc 1 TAB PO SCH (10:45)
[2019-05-23] MEDS: Polyethylene Glycol 3350 17 GM Packet PO SCH ×2 (10:47→21:00)
[2019-05-23] MEDS: traMADol HCl 50 MG TAB PO PRN ×2 (15:21→21:37)
[2019-05-23] MEDS ORDERED: Warfarin Sodium 2 MG TAB PO SCH (17:00)
[2019-05-23] MEDS ORDERED: Warfarin Sodium 5 MG TAB PO SCH (17:00)
[2019-05-23] MEDS: Warfarin Sodium 5 MG TAB PO SCH (17:29)
[2019-05-23] MEDS: Warfarin Sodium 2 MG TAB PO SCH (17:30)
[2019-05-23] MEDS: Potassium Chloride 20 MEQ TAB PO SCH (20:57)
[2019-05-23] MEDS: Docusate 100 MG CAP PO SCH (20:57)
[2019-05-23] MEDS: Atorvastatin Calcium 40 MG TAB PO SCH (20:58)
[2019-05-23] MEDS: Pregabalin 75 MG CAP PO SCH (21:04)
[2019-05-23] MEDS: Melatonin 3 MG TAB PO SCH (21:40)
[2019-05-24] MEDS: Acetaminophen 325 MG TAB PO PRN (02:50)
[2019-05-24 05:20] LABS: Hemoglobin 9.2 g/dL (14.0-18.0); Platelet Count 117 thou/uL (130-400)
[2019-05-24 05:32] LABS: INR-International Normal Ratio 1.3; Prothrombin Time 16.2 SEC (12.0-14.7)
[2019-05-24] MEDS: Levothyroxine Sodium 100 MCG TAB PO SCH (06:09)
[2019-05-24] MEDS: traMADol HCl 50 MG TAB PO PRN ×3 (08:32→21:20)
[2019-05-24] MEDS: Stress 600 With Zinc 1 TAB PO SCH (08:33)
[2019-05-24] MEDS: busPIRone HCl 5 MG TAB PO SCH ×2 (08:33→21:14)
[2019-05-24] MEDS: Ferrous Sulfate 325 MG TAB PO SCH (08:33)
[2019-05-24] MEDS: Furosemide 40 MG TAB PO SCH ×2 (08:33→21:16)
[2019-05-24] MEDS: Enoxaparin Sodium 100 MG/ML SYRINGE SC SCH ×2 (08:34→21:08)
[2019-05-24] MEDS: Artificial Tear Sol 15 ML BOT R EYE SCH ×2 (08:34→21:21)
[2019-05-24] MEDS: Alogliptin 25 MG TAB PO SCH (08:34)
[2019-05-24] MEDS: Loratadine 10 MG TAB PO SCH (08:34)
[2019-05-24] MEDS: Polyethylene Glycol 3350 17 GM Packet PO SCH ×2 (08:37→21:14)
[2019-05-24] MEDS: Warfarin Sodium 5 MG TAB PO SCH (17:06)
[2019-05-24] MEDS: Warfarin Sodium 2 MG TAB PO SCH (17:06)
[2019-05-24] MEDS: Atorvastatin Calcium 40 MG TAB PO SCH (21:14)
[2019-05-24] MEDS: Potassium Chloride 20 MEQ TAB PO SCH (21:15)
[2019-05-24] MEDS: Docusate 100 MG CAP PO SCH (21:16)
[2019-05-24] MEDS: Melatonin 3 MG TAB PO SCH (21:16)
[2019-05-24] MEDS: Pregabalin 75 MG CAP PO SCH (21:17)
[2019-05-24] MEDS: Lorazepam 0.5 MG TAB PO PRN (23:09)
[2019-05-25 05:26] LABS: INR-International Normal Ratio 1.3; Prothrombin Time 16.1 SEC (12.0-14.7)
[2019-05-25] MEDS: Levothyroxine Sodium 100 MCG TAB PO SCH (06:02)
[2019-05-25] MEDS: Enoxaparin Sodium 100 MG/ML SYRINGE SC SCH ×2 (09:09→22:08)
[2019-05-25] MEDS: Loratadine 10 MG TAB PO SCH (09:10)
[2019-05-25] MEDS: Furosemide 40 MG TAB PO SCH ×2 (09:10→22:07)
[2019-05-25] MEDS: Ferrous Sulfate 325 MG TAB PO SCH (09:10)
[2019-05-25] MEDS: busPIRone HCl 5 MG TAB PO SCH ×2 (09:10→22:06)
[2019-05-25] MEDS: Artificial Tear Sol 15 ML BOT R EYE SCH ×2 (09:11→22:06)
[2019-05-25] MEDS: Alogliptin 25 MG TAB PO SCH (09:11)
[2019-05-25] MEDS: Stress 600 With Zinc 1 TAB PO SCH (09:11)
[2019-05-25] MEDS: Polyethylene Glycol 3350 17 GM Packet PO SCH ×2 (09:11→22:08)
[2019-05-25] MEDS: traMADol HCl 50 MG TAB PO PRN (11:55)
[2019-05-25 14:22] VITALS: BMI 33.0
[2019-05-25] MEDS: Warfarin Sodium 5 MG TAB PO SCH (17:31)
[2019-05-25] MEDS: Acetaminophen 325 MG TAB PO PRN (17:31)
[2019-05-25] MEDS: Warfarin Sodium 2 MG TAB PO SCH (17:34)
[2019-05-25] MEDS: Melatonin 3 MG TAB PO SCH (22:07)
[2019-05-25] MEDS: Lorazepam 0.5 MG TAB PO PRN (22:07)
[2019-05-25] MEDS: Atorvastatin Calcium 40 MG TAB PO SCH (22:07)
[2019-05-25] MEDS: Potassium Chloride 20 MEQ TAB PO SCH (22:07)
[2019-05-25] MEDS: Docusate 100 MG CAP PO SCH (22:07)
[2019-05-25] MEDS: Pregabalin 75 MG CAP PO SCH (22:08)
[2019-05-26] MEDS: Levothyroxine Sodium 100 MCG TAB PO SCH (05:01)
[2019-05-26] MEDS: traMADol HCl 50 MG TAB PO PRN ×2 (05:01→11:58)
[2019-05-26 05:08] LABS: INR-International Normal Ratio 1.4; Prothrombin Time 16.7 SEC (12.0-14.7)
[2019-05-26 05:21] LABS: Hemoglobin 9.2 g/dL (14.0-18.0); Platelet Count 155 thou/uL (130-400)
[2019-05-26] MEDS: Ferrous Sulfate 325 MG TAB PO SCH (09:48)
[2019-05-26] MEDS: Polyethylene Glycol 3350 17 GM Packet PO SCH ×2 (09:49→22:08)
[2019-05-26] MEDS: Enoxaparin Sodium 100 MG/ML SYRINGE SC SCH ×2 (09:50→22:15)
[2019-05-26] MEDS: Stress 600 With Zinc 1 TAB PO SCH (09:50)
[2019-05-26] MEDS: Furosemide 40 MG TAB PO SCH ×2 (09:51→22:07)
[2019-05-26] MEDS: Loratadine 10 MG TAB PO SCH (09:53)
[2019-05-26] MEDS: Artificial Tear Sol 15 ML BOT R EYE SCH ×2 (09:53→22:07)
[2019-05-26] MEDS: Alogliptin 25 MG TAB PO SCH (09:53)
[2019-05-26] MEDS: busPIRone HCl 5 MG TAB PO SCH ×2 (09:54→22:07)
[2019-05-26] MEDS: Acetaminophen 325 MG TAB PO PRN ×2 (14:55→22:18)
[2019-05-26] MEDS: Warfarin Sodium 2 MG TAB PO SCH (17:19)
[2019-05-26] MEDS: Warfarin Sodium 5 MG TAB PO SCH (17:22)
[2019-05-26] MEDS: Lorazepam 0.5 MG TAB PO PRN (22:07)
[2019-05-26] MEDS: Melatonin 3 MG TAB PO SCH (22:08)
[2019-05-26] MEDS: Potassium Chloride 20 MEQ TAB PO SCH (22:08)
[2019-05-26] MEDS: Docusate 100 MG CAP PO SCH (22:08)
[2019-05-26] MEDS: Atorvastatin Calcium 40 MG TAB PO SCH (22:08)
[2019-05-26] MEDS: Pregabalin 75 MG CAP PO SCH (22:08)
[2019-05-27] MEDS: Levothyroxine Sodium 100 MCG TAB PO SCH (05:02)
[2019-05-27] MEDS: traMADol HCl 50 MG TAB PO PRN ×2 (05:02→18:56)
[2019-05-27 05:22] LABS: INR-International Normal Ratio 1.3; Prothrombin Time 16.6 SEC (12.0-14.7)
[2019-05-27] MEDS: Acetaminophen 325 MG TAB PO PRN ×2 (07:56→22:29)
[2019-05-27] MEDS: Furosemide 40 MG TAB PO SCH ×2 (10:00→21:21)
[2019-05-27] MEDS: Alogliptin 25 MG TAB PO SCH (10:00)
[2019-05-27] MEDS: Polyethylene Glycol 3350 17 GM Packet PO SCH ×2 (10:00→21:22)
[2019-05-27] MEDS: busPIRone HCl 5 MG TAB PO SCH ×2 (10:00→21:21)
[2019-05-27] MEDS: Ferrous Sulfate 325 MG TAB PO SCH (10:00)
[2019-05-27] MEDS: Stress 600 With Zinc 1 TAB PO SCH (10:00)
[2019-05-27] MEDS: Enoxaparin Sodium 100 MG/ML SYRINGE SC SCH ×2 (10:00→21:22)
[2019-05-27] MEDS: Loratadine 10 MG TAB PO SCH (10:00)
[2019-05-27] MEDS: Artificial Tear Sol 15 ML BOT R EYE SCH ×2 (10:09→21:22)
[2019-05-27] MEDS: Warfarin Sodium 5 MG TAB PO SCH (18:55)
[2019-05-27] MEDS: Warfarin Sodium 2 MG TAB PO SCH (18:56)
[2019-05-27] MEDS: Lorazepam 0.5 MG TAB PO PRN (21:20)
[2019-05-27] MEDS: Potassium Chloride 20 MEQ TAB PO SCH (21:20)
[2019-05-27] MEDS: Melatonin 3 MG TAB PO SCH (21:21)
[2019-05-27] MEDS: Docusate 100 MG CAP PO SCH (21:21)
[2019-05-27] MEDS: Atorvastatin Calcium 40 MG TAB PO SCH (21:21)
[2019-05-27] MEDS: Pregabalin 75 MG CAP PO SCH (21:21)
[2019-05-28] MEDS: traMADol HCl 50 MG TAB PO PRN (03:52)
[2019-05-28 04:54] VITALS: BP 101/51; TEMP 98
[2019-05-28 04:54] LABS: Hemoglobin 8.9 g/dL (14.0-18.0); Platelet Count 160 thou/uL (130-400)
[2019-05-28 05:01] LABS: INR-International Normal Ratio 1.3; Prothrombin Time 16.5 SEC (12.0-14.7)
[2019-05-28] MEDS: Levothyroxine Sodium 100 MCG TAB PO SCH (05:22)
[2019-05-28] MEDS: Enoxaparin Sodium 100 MG/ML SYRINGE SC SCH (08:53)
[2019-05-28] MEDS: Polyethylene Glycol 3350 17 GM Packet PO SCH (08:53)
[2019-05-28] MEDS: Furosemide 40 MG TAB PO SCH (08:54)
[2019-05-28] MEDS: Loratadine 10 MG TAB PO SCH (08:55)
[2019-05-28] MEDS: Alogliptin 25 MG TAB PO SCH (08:55)
[2019-05-28] MEDS: Stress 600 With Zinc 1 TAB PO SCH (08:55)
[2019-05-28] MEDS: Ferrous Sulfate 325 MG TAB PO SCH (08:55)
[2019-05-28] MEDS: busPIRone HCl 5 MG TAB PO SCH (08:55)
[2019-05-28] MEDS: Artificial Tear Sol 15 ML BOT R EYE SCH (09:05)
[2019-05-28] MEDS: Acetaminophen 325 MG TAB PO PRN (11:44)
[2019-05-28] MEDS: Warfarin Sodium 2 MG TAB PO SCH (17:02)
[2019-05-28] MEDS: Warfarin Sodium 5 MG TAB PO SCH (17:02)
--- NOTE | 2019-05-29 05:16 | DIS ---
DATE OF ADMISSION: 05/22/2019 DATE OF DISCHARGE: 05/28/2019 ADMISSION DIAGNOSES: 1. Physical deconditioning. 2. Bilateral pneumonia. 3. Subtherapeutic INR. 4. Chronic atrial fibrillation. 5. Sepsis secondary to pneumonia. 6. Acute on chronic stage 3 kidney disease. DISCHARGE DIAGNOSES: 1. Physical deconditioning. 2. Bilateral pneumonia. 3. Subtherapeutic INR. 4. Chronic atrial fibrillation. 5. Sepsis secondary to pneumonia. 6. Acute on chronic stage 3 kidney disease. ATTENDING PHYSICIAN: Yong Cortez MD with Keily Norman DO, covering on the date of discharge. PROCEDURES: None. HISTORY AND PHYSICAL: Please see report per attending physician from the date of admission. HOSPITAL COURSE: Mr. Hernandez is a 78-year-old male, who was admitted to the skilled unit on May 22, 2019, for physical and occupational therapy after a recent hospital stay at [facility] from May 18 through May 22 for pneumonia. He had previously been admitted to CCU and treated with BiPAP and IV antibiotics, evaluated by Critical Care and improved but had some significant deconditioning. He was transferred here for therapy on p.o. Levaquin. He was on home O2, but did require continuous O2 during his hospital admission. His rehab course was uncomplicated. In addition, the patient did have a subtherapeutic INR throughout his admission. Apparently, he was on a lower than his home dose of warfarin during his initial hospitalization and Lovenox was started b.i.d. His warfarin dose was monitored and adjusted per Pharmacy and he did end up getting a dose of 9 mg on the date prior to his discharge. However, his INR on the date of discharge is still at 1.3. I do feel like if we keep him on 9 mg daily since this is above his usual home dose, we will overshoot. Therefore, I have prescribed Lovenox b.i.d. to be continued at least through Saturday when he will have a repeat PT/INR. I am going to continue him on his home dose of warfarin prior to entering the hospital. He will get PT/INR through home health with results called to the clinic. Regarding his oxygen need, I have ordered portable oxygen for the patient in the home. The patient will resume [facility]. He has all other durable medical equipments at home already. DISPOSITION: Discharged home. CONDITION: Stable. FOLLOWUP: Followup with primary care physician, Dr. Yong Cortez, in approximately 10 days. MEDICATIONS: 1. Tramadol 50 mg p.o. q.i.d. p.r.n. 2. BuSpar 15 mg p.o. b.i.d. 3. Coumadin 5 mg daily plus 2 mg on Saturday, Saturday, , and Saturday. 4. Vitamin B one daily. 5. Lyrica 75 p.o. at bedtime. 6. Potassium 20 mEq at bedtime. 7. MiraLAX 17 g b.i.d. 8. Omeprazole 20 mg daily. 9. Toprol-XL 25 mg daily. 10. Zaroxolyn 5 mg p.o. daily p.r.n. for weight gain. 11. Melatonin 5 mg p.o. at bedtime. 12. Ativan 0.5 mg p.o. b.i.d. p.r.n. anxiety. 13. Tradjenta 5 mg p.o. daily. 14. Synthroid 300 mcg p.o. at 0600. 15. Lasix 40 mg p.o. b.i.d. 16. Ferrous sulfate 325 mg p.o. daily. 17. Lovenox 100 mg subcu b.i.d. until INR therapeutic between 2 to 3. 18. Colace 100 mg p.o. at bedtime. 19. Vitamin D3 one p.o. daily. 20. Zyrtec 10 mg p.o. daily. 21. Atorvastatin 40 mg p.o. at bedtime. 22. Artificial Tears one drop in the right eye b.i.d. 23. Tylenol 650 mg p.o. q.4 hours p.r.n. 24. Of note, Levaquin therapy completed today. Job ID: [id number]
== END 2019-05-28 17:00 | disposition home health service (06) | DRG 871 ==
LOC: BURMED 16:40
PROVIDERS: ADMIT Family Medicine; ATTEND Family Medicine
DX: A41.9 Sepsis, unspecified organism (principal); J18.9 Pneumonia, unspecified organism; I50.30 Unspecified diastolic (congestive) heart failure; I13.0 Hypertensive heart and chronic kidney disease with heart failure and stage 1 through stage 4 chronic kidney disease, or unspecified chronic kidney disease; I48.2 Chronic atrial fibrillation; N18.3 Chronic kidney disease, stage 3 (moderate); R53.81 Other malaise; R79.1 Abnormal coagulation profile; G47.33 Obstructive sleep apnea (adult) (pediatric); E03.9 Hypothyroidism, unspecified; E78.5 Hyperlipidemia, unspecified; Z79.01 Long term (current) use of anticoagulants
CPT/HCPCS: 36415; 36416; 82565; 85014; 85018; 85049; 85610; J1650

== ENCOUNTER → 2019-06-22 | Emergency (ER) | payer MEDICARE ==
[2019-06-22 13:22] LABS: #Basophils 0.1 thou/uL (0.0-0.2); #Eosinphils 0.1 thou/uL (0.0-0.7); #Lymphocytes 0.7 thou/uL (1.20-3.40); #Monocytes 0.4 thou/uL (0.11-0.59); #Neutrophils 3.1 thou/uL (1.40-6.50); %Basophils 1.2 % (0.0-1.0); %Eosinophils 3.2 % (0.0-10.0); %Lymphocytes 16.9 % (21.0-51.0); %Monocytes 8.1 % (0.0-10.0); %Neutrophils 70.7 % (42.0-75.0); Hemoglobin 8.4 g/dL (14.0-18.0); Mean Corpuscular HGB CONC 30.2 g/dL (32.0-36.0); Mean Corpuscular Hemoglobin 27.3 pg (27.0-31.0); Mean Corpuscular Volume 90.5 fL (78.0-98.0); Mean Platelet Volume 7.1 fL (7.4-10.4); Platelet Count 154 thou/uL (130-400); RBC Distribution Width 16.7 % (11.5-14.5); Red Blood Cell (RBC) Count 3.09 mill/uL (4.70-6.10); White Blood Cell (WBC) Count 4.3 thou/uL (4.8-10.8)
[2019-06-22 13:27] LABS: Prothrombin Time 22.5 SEC (12.0-14.7)
== END ==
LOC: BURERS 12:54
DX: R04.0 Epistaxis (principal); I48.91 Unspecified atrial fibrillation; E03.9 Hypothyroidism, unspecified; J44.9 Chronic obstructive pulmonary disease, unspecified; I50.9 Heart failure, unspecified; E78.5 Hyperlipidemia, unspecified; Z86.711 Personal history of pulmonary embolism; F41.9 Anxiety disorder, unspecified; Z79.899 Other long term (current) drug therapy; Z79.01 Long term (current) use of anticoagulants
CPT/HCPCS: 36415; 85025; 85610; 99283

== ENCOUNTER 2019-07-29 10:34 | Outpatient (CLI) | payer MEDICARE ==
--- NOTE | 2019-07-29 20:04 | RAD ---
CHEST TWO VIEWS: 07/29/19 Comparison is made with an 05/19/19 study. Mild cardiomegaly is present but there are no congestive findings today. Blunting of the right costop hrenic angle may be residual pleural fluid or scarring. The infiltrate seen here before has essential ly cleared. Minimal left basilar haziness is probably chronic. IMPRESSION: Chronic changes but no acute findings. Pathology could easily be missed in this patient's lung bases. If he is not improving as expected, CT could be needed to better assess him. POS: HOME
== END 2019-07-29 10:35 | disposition home or self-care (01) ==
LOC: BURRAD 10:34
PROVIDERS: ATTEND Family Medicine
DX: R05 Cough (principal)
CPT/HCPCS: 71046

== ENCOUNTER 2019-10-21 15:26 | Outpatient (CLI) | payer MEDICARE ==
--- NOTE | 2019-10-21 20:20 | RAD ---
CHEST TWO VIEWS: 10/21/19 Comparison is made with an 09/06/19 study. There is some basilar streaking bilaterally and some increased streaking behind the heart on the late ral view. Basilar infiltrates are presumed, probably in each lower lobe. This appears to be on top of some chronic scarring. The heart size is stable being upper normal. There is no congestive change or large pleural effusion. Old healed rib fractures are seen on the left. IMPRESSION: Small basilar infiltrates, presumably pneumonia. POS: HOME
== END 2019-10-21 15:27 | disposition home or self-care (01) ==
LOC: BURRAD 15:26
PROVIDERS: ATTEND Family Medicine
DX: R05 Cough (principal); R91.8 Other nonspecific abnormal finding of lung field
CPT/HCPCS: 71046

== ENCOUNTER 2019-12-10 15:01 | Outpatient (CLI) | payer MEDICARE ==
--- NOTE | 2019-12-10 20:51 | RAD ---
CHEST TWO VIEWS: 12/10/19 Comparison is made with the prior study of 10/21/19. There is some chronic fibrotic changes in the lung bases, but there is still a little bit of basilar streaking on top of that. Looking at last month's study, it was felt like this was probably a small p neumonia brewing. The infiltrates have changed slightly in the interval and actually seem a little le ss than before. No new lobar infiltrate was seen. No large effusions are present. The cardiac size is stable. There are no findings of congestive change. IMPRESSION: Chronic changes but still some basilar streaking bilaterally. This is presumably residual from infect ion, but it has probably decreased slightly since last month. If the patient's clinical symptoms sugg est the need, one might justify a CT scan at some point if he is not continuing to improve adequately . POS: HOME
== END 2019-12-10 15:02 | disposition home or self-care (01) ==
LOC: BURRAD 15:01
PROVIDERS: ATTEND Family Medicine
DX: R04.2 Hemoptysis (principal)
CPT/HCPCS: 71046

== ENCOUNTER 2021-03-05 15:33 | Emergency (ER) | payer MEDICARE ==
[2021-03-05 16:11] LABS: INR-International Normal Ratio 1.1; Prothrombin Time 13.9 sec (12.0-14.7)
[2021-03-05 16:15] LABS: ALT (SGPT) 13 U/L (8-55); AST (SGOT) 17 U/L (5-34); Albumin 3.4 g/dL (3.4-4.8); Alkaline Phosphatase 71 U/L (40-110); Anion Gap 15 mmol/L (10-20); Anisocytosis SLIGHT = 6-15 cells (100X) (0-5/hpf); BUN (Urea Nitrogen) 58 mg/dL (8.4-25.7); Bilirubin, Total 0.7 mg/dL (0.2-1.2); Calc. Creatinine Clearance 0 mL/min (70-130); Calcium 8.9 mg/dL (7.8-10.44); Carbon Dioxide 31 mmol/L (23-31); Chloride 98 mmol/L (98-107); Globulin 3.4 g/dL (2.4-3.5); Glucose 174 mg/dL (83-110); Hemoglobin 8.9 g/dL (14.0-18.0); Hypochromia SLIGHT = 6-15 cells (100X) (0-5/hpf); Lymphocytes 1 % (21-51); MDiff Complete? YES; Mean Corpuscular HGB CONC 30.6 g/dL (32.0-36.0); Mean Corpuscular Hemoglobin 26.5 pg (27.0-31.0); Mean Corpuscular Volume 86.7 fL (78.0-98.0); Mean Platelet Volume 6.1 fL (7.4-10.4); Monocytes 1 % (0-10); Neutrophil 98 % (42-75); Ovalocytes SLIGHT = 2-5 cells (100X) (0-1/hpf); Platelet Count 214 thou/uL (130-400); Poikilocytosis SLIGHT = 6-15 cells (100X) (0-5/hpf); Protein, Total 6.8 g/dL (5.8-8.1); RBC Distribution Width 16.5 % (11.5-14.5); Red Blood Cell (RBC) Count 3.35 mill/uL (4.70-6.10); Schistocytes SLIGHT = 2-5 cells (100X) (0-1/hpf); Sodium 140 mmol/L (136-145)
[2021-03-05 16:19] LABS: Manual Diff?? YES; White Blood Cell (WBC) Count 10.1 thou/uL (4.8-10.8)
[2021-03-05] MEDS ORDERED: Lidocaine 4% Cream 5 GM TUBE w/ Tegaderm ONE (17:12)
[2021-03-05 17:32] LABS: Bilirubin Negative (Negative); Blood, Urine Moderate (Negative); Clarity Clear (Clear); Glucose, Urine (Dipstick) Negative (Negative); Ketone, Urine Negative (Negative); Leukocyte Small (Negative); Nitrite Negative (Negative); Protein, Urine (Dipstick) Negative (Neg-Trace); Specific Gravity, Urine 1.015 (1.005-1.030); Urobilinogen 0.2 mg/dL (Less than 2); pH, Urine 6.5 (5.0-9.0)
[2021-03-05 17:33] LABS: Bacteria/HPF None Seen HPF (None Seen); Squamous Epithelial 0-3 HPF (0-3); WBC/HPF 0-3 HPF (0-3)
== END 2021-03-05 18:34 | disposition home or self-care (01) ==
LOC: BURERS 15:33
DX: S51.011A Laceration without foreign body of right elbow, initial encounter (principal); E03.9 Hypothyroidism, unspecified; I50.9 Heart failure, unspecified; E78.5 Hyperlipidemia, unspecified; Z79.891 Long term (current) use of opiate analgesic; Z79.899 Other long term (current) drug therapy; W18.30XA Fall on same level, unspecified, initial encounter
CPT/HCPCS: 12002; 36415; 70450; 71045; 72125; 80053; 81003; 81015; 85025; 85610; 93005; 94760

== ENCOUNTER 2021-03-19 06:00 | Emergency (ER) | payer MEDICARE ==
[2021-03-19] MEDS ORDERED: Lidocaine 1% w/Epinephrine 1:100K 20 ML VIAL ONE (06:28)
== END 2021-03-19 07:09 | disposition home or self-care (01) ==
LOC: BURERS 06:00
DX: L76.22 Postprocedural hemorrhage of skin and subcutaneous tissue following other procedure (principal); E03.9 Hypothyroidism, unspecified; I50.9 Heart failure, unspecified; I48.91 Unspecified atrial fibrillation; E78.5 Hyperlipidemia, unspecified; Z87.891 Personal history of nicotine dependence; Z79.899 Other long term (current) drug therapy; Z79.82 Long term (current) use of aspirin
CPT/HCPCS: 12002

== ENCOUNTER 2021-04-12 16:47 | Outpatient (CLI) | payer MEDICARE | END 2021-04-12 16:48 | disposition home or self-care (01) | LOC: BURRAD 16:47 | PROVIDERS: ATTEND Family Medicine | DX: R04.2 Hemoptysis (principal); R91.8 Other nonspecific abnormal finding of lung field | CPT/HCPCS: 71046 ==

== ENCOUNTER 2021-04-16 06:55 | Emergency (ER) | payer MEDICARE ==
[2021-04-16 07:34] LABS: #Basophils 0.1 thou/uL (0.0-0.2); #Lymphocytes 0.7 thou/uL (1.20-3.40); #Monocytes 0.5 thou/uL (0.11-0.59); #Neutrophils 3.1 thou/uL (1.40-6.50); %Basophils 1.4 % (0.0-1.0); %Eosinophils 1.1 % (0.0-10.0); %Monocytes 11.8 % (0.0-10.0); %Neutrophils 70.8 % (42.0-75.0); Mean Corpuscular Hemoglobin 27.5 pg (27.0-31.0); Mean Corpuscular Volume 91.7 fL (78.0-98.0); Mean Platelet Volume 7.5 fL (7.4-10.4); Platelet Count 151 thou/uL (130-400); RBC Distribution Width 21.2 % (11.5-14.5); Red Blood Cell (RBC) Count 1.81 mill/uL (4.70-6.10); White Blood Cell (WBC) Count 4.4 thou/uL (4.8-10.8)
[2021-04-16 07:40] LABS: INR-International Normal Ratio 1.1; Prothrombin Time 14.5 sec (12.0-14.7)
[2021-04-16 07:41] LABS: PTT 30.7 sec (22.9-36.1)
[2021-04-16] MEDS ORDERED: Pantoprazole 40 MG VIAL ONE (07:43)
[2021-04-16 07:45] LABS: MDiff Complete? YES
[2021-04-16 08:01] LABS: ALT (SGPT) 9 U/L (8-55); AST (SGOT) 19 U/L (5-34); Albumin 2.8 g/dL (3.4-4.8); Alkaline Phosphatase 54 U/L (40-110); Anion Gap 15 mmol/L (10-20); BUN (Urea Nitrogen) 99 mg/dL (8.4-25.7); Bilirubin, Total 0.3 mg/dL (0.2-1.2); Calc. Creatinine Clearance 0 mL/min (70-130); Calcium 8.7 mg/dL (7.8-10.44); Carbon Dioxide 31 mmol/L (23-31); Chloride 102 mmol/L (98-107); Globulin 2.6 g/dL (2.4-3.5); Glucose 114 mg/dL (83-110); Potassium 5.1 mmol/L (3.5-5.1); Protein, Total 5.4 g/dL (5.8-8.1); Sodium 143 mmol/L (136-145)
[2021-04-16] MEDS ORDERED: cefTRIAXone\\ROCEPHIN 1 GM VIAL ONE ×2 (08:30→08:31)
[2021-04-16] MEDS ORDERED: Sodium Chloride 0.9% 0 ML ONE (08:31)
[2021-04-16] MEDS ORDERED: Sodium Chloride 0.9% 100 ML ONE (08:31)
[2021-04-16 14:27] LABS: Iron 18 ug/dL (65-175); Iron Binding Capacity, Total 309 mcg/dL (261-462)
== END 2021-04-16 09:36 | disposition short-term general hospital (02) ==
LOC: BURERS 06:55
DX: K92.2 Gastrointestinal hemorrhage, unspecified (principal); D64.9 Anemia, unspecified; E03.9 Hypothyroidism, unspecified; I50.9 Heart failure, unspecified; I48.91 Unspecified atrial fibrillation; Z86.73 Personal history of transient ischemic attack (TIA), and cerebral infarction without residual deficits; E78.5 Hyperlipidemia, unspecified; Z87.891 Personal history of nicotine dependence
CPT/HCPCS: 36430; 71045; 80053; 82274; 82728; 83540; 83550; 83605; 83880; 84484; 85025; 85610; 85730; 86850; 86900; 86901; 86922; 87040; 93005; 94760; 96365; 96366; C9113; J0696; J3490; J7050; P9016

== ENCOUNTER 2021-08-06 10:33 | Emergency (ER) | payer MEDICARE ==
[2021-08-06 10:55] LABS: #Basophils 0.1 thou/uL (0.0-0.2); #Eosinphils 0.2 thou/uL (0.0-0.7); #Lymphocytes 0.4 thou/uL (1.20-3.40); #Monocytes 0.4 thou/uL (0.11-0.59); %Basophils 1.4 % (0.0-1.0); %Eosinophils 5.4 % (0.0-10.0); %Lymphocytes 10.4 % (21.0-51.0); %Monocytes 10.7 % (0.0-10.0); %Neutrophils 72.1 % (42.0-75.0); Hemoglobin 7.5 g/dL (14.0-18.0); Mean Corpuscular HGB CONC 30.3 g/dL (32.0-36.0); Mean Corpuscular Hemoglobin 28.4 pg (27.0-31.0); Mean Corpuscular Volume 93.8 fL (78.0-98.0); Mean Platelet Volume 6.8 fL (7.4-10.4); Platelet Count 93 thou/uL (130-400); RBC Distribution Width 16.5 % (11.5-14.5); Red Blood Cell (RBC) Count 2.63 mill/uL (4.70-6.10); White Blood Cell (WBC) Count 4.1 thou/uL (4.8-10.8)
[2021-08-06 11:03] LABS: INR-International Normal Ratio 1.1; Prothrombin Time 14.4 sec (12.0-14.7)
[2021-08-06 11:04] LABS: PTT 35.6 sec (22.9-36.1)
[2021-08-06 11:12] LABS: ALT (SGPT) 9 U/L (8-55); AST (SGOT) 21 U/L (5-34); Albumin 3.5 g/dL (3.4-4.8); Alkaline Phosphatase 66 U/L (40-110); Anion Gap 13 mmol/L (10-20); BUN (Urea Nitrogen) 67 mg/dL (8.4-25.7); Bilirubin, Total 0.8 mg/dL (0.2-1.2); Calc. Creatinine Clearance 0 mL/min (70-130); Calcium 9.4 mg/dL (7.8-10.44); Carbon Dioxide 30 mmol/L (23-31); Chloride 99 mmol/L (98-107); Globulin 3.2 g/dL (2.4-3.5); Glucose 114 mg/dL (83-110); Potassium 4.2 mmol/L (3.5-5.1); Protein, Total 6.7 g/dL (5.8-8.1); Sodium 138 mmol/L (136-145)
[2021-08-06 11:30] LABS: Large Platelets SLIGHT; MDiff Complete? YES; Platelet Morphology Comment Appears Decreased
[2021-08-06 11:42] LABS: Base Excess-Venous 3.7 mmol/L (-2.0 to 3.0); Bicarbonate (HCO3v) 28.8 mmol/L (22.0-28.0); CO2 Tension (PvCO2) 45.9 mmHg (42.0-51.0); Calcium, Ionized 1.17 mmol/L (1.15-1.33); Chloride 99 mmol/L (98-107); Hemoglobin - Calc 8.1 g/dL (14.0-18.0); Potassium 3.9 mmol/L (3.5-5.1); Sodium 137 mmol/L (138-145); T. Carbon Dioxide 30.2 mmol/L (22.0-28.0); vO2 Saturation-calc 69.4 % (60.0-85.0)
[2021-08-06 12:45] LABS: SARS-CoV-2 NAA Rapid Test Not Detected (NotDetected)
[2021-08-06 12:58] LABS: Bilirubin Negative (Negative); Blood, Urine Moderate (Negative); Clarity Clear (Clear); Glucose, Urine (Dipstick) Negative (Negative); Ketone, Urine Negative (Negative); Leukocyte Negative (Negative); Nitrite Negative (Negative); Protein, Urine (Dipstick) Negative (Neg-Trace); pH, Urine 5.5 (5.0-9.0)
[2021-08-06] MEDS ORDERED: Iopamidol 370 76% 100 ML VIAL ONE (12:58)
[2021-08-06] MEDS ORDERED: Sodium Chloride 0.9% 100 ML ONE (13:02)
[2021-08-06] MEDS ORDERED: cefTRIAXone\\ROCEPHIN 2 GM VIAL ONE (13:02)
[2021-08-06 13:04] LABS: Bacteria/HPF 1+ HPF (None Seen); Squamous Epithelial 0-3 HPF (0-3); WBC/HPF 0-3 HPF (0-3)
[2021-08-06 15:05] LABS: Digoxin 0.29 ng/mL (0.8-2.0)
== END 2021-08-06 15:20 | disposition short-term general hospital (02) ==
LOC: BURERS 10:33
DX: D64.9 Anemia, unspecified (principal); R59.1 Generalized enlarged lymph nodes; R04.2 Hemoptysis; R09.02 Hypoxemia; Z20.822 Contact with and (suspected) exposure to COVID-19; E03.9 Hypothyroidism, unspecified; Z79.899 Other long term (current) drug therapy; Z87.891 Personal history of nicotine dependence
CPT/HCPCS: 70491; 71045; 71260; 80053; 80162; 82330; 82435; 82803; 83605; 83880; 84132; 84295; 84484; 85014; 85025; 85610; 85730; 87040; 87070; 87205; 93005; 94760; U0002; 36415; 81003; 81015; 87116; 87206; 96365; 96367; J0696; J1956; J3490; Q9967